=== PATIENT | female | born 1965 | race Caucasian/White ===

== ENCOUNTER → 2017-11-18 12:49 | Outpatient (CLI) | payer OTHER, SELFPAY ==
--- NOTE | 2017-11-18 12:57 | BI_ITS ---
MAMMOGRAPHY - BILATERAL SCREENING REASON FOR EXAM: Female, 52 years old. Routine annual screening examination. PERTINENT HISTORY: Grandmother with breast cancer. TECHNIQUE: Digital bilateral breast desmond (3D mammographic acquisition) in the CC and MLO projections. 2-D mediolateral oblique (MLO) and craniocaudad (CC) views of both breasts were obtained. CAD: Full Field Digital Mammography with Computer Added Detection was performed. COMPARISON: Comparison is made with prior study dated August 07, 2016 and December 18, 2011. FINDINGS: Breast Composition: The breasts are heterogeneously dense, which may obscure small masses. There are no dominant masses or suspicious calcifications. No other significant abnormalities are identified. There has been no significant change since the prior study. BI/SCREENING MAMM (CAD), BILAT IMPRESSION: Stable bilateral screening mammogram. Yearly follow-up mammogram recommended. (A) ASSESSMENT CATEGORY: BIRADS Category 1: Negative. A letter regarding these results will be sent to the patient by the facility within 30 days. Approximately 10% of breast cancers are not detected by mammography. A normal mammogram should not delay biopsy of a clinically suspicious abnormality. [id number] Electronically Signed: Fernando Porras MD at 13:32 EDT Tel [phone], Service support ,
== END ==
PROVIDERS: Family Provider Student in an Organized Health Care Education/Training Program; PCP Student in an Organized Health Care Education/Training Program
DX: Z12.31 Encounter for screening mammogram for malignant neoplasm of breast (principal)
CPT/HCPCS: 77063; 77067

== ENCOUNTER 2022-07-25 14:03 | Emergency (ER) | payer OTHER, SELFPAY ==
[2022-07-25 14:05] VITALS: BP 185/95; PULSE 59; RESP 18; TEMP 36.4; O2SAT 100; BMI 32.1
--- NOTE | 2022-07-25 14:42 | EX.ED.DYSGE1 ---
HPI History of Present Illness Chief Complaint: Hypertension Informant: patient Onset/Context/Timing Onset: Days (4) Context: Gradual Onset Timing: Continuous Quality: Pressure Location: Sinuses Worsened by: Nothing Relieved by: Nothing Narrative Narrative: Presents with elevated blood pressure that was noticed today when she went to the urgent care. Patient states her blood pressure there was 218/106. Patient states she called her primary care physician's office and was told to come to the emergency department because of the elevated blood pressure. Patient states that she has had a sinus infection over the past 4 days. Patient states it is gradually getting worse. Patient states it feels like a pressure over her sinuses. Patient states that 4 days ago she started having a headache that lasted approximately 2 hours. Patient states this was worse than her normal sinus pressure headaches. Patient states it lasted approximately 2 hours and then resolved. Patient states it is mainly over the occipital area. Patient denies any visual changes. Patient states that she woke up 3 days ago with scratchy throat and postnasal drainage. Patient states this is typical for the onset of her sinus infections. Patient does admit to some tingling in her arms bilaterally. Patient denies any weakness. [facility] Medical History (Updated 07/25/22 @ 17:[address] Stevo Martinez DO) Hypothyroid Home Medications amlodipine 5 mg tablet 5 mg PO DAILY #7 tabs 07/25/22 [Rx Last Taken Unknown] Allergy/AdvReac Type Severity Reaction Status Date / Time Sulfa (Sulfonamide Allergy Itching Verified 07/25/22 14:04 Antibiotics) erythromycin base AdvReac Vomiting Verified 07/25/22 14:04 Surgical History (Updated 07/25/22 @ 14:[address] Stevo Martinez DO) Hx of colonoscopy with polypectomy Social History Smoking Status: Never smoker ROS ROS ED Constitutional Constitutional ED: Denies chills or fever(s) Eyes Eyes: Denies blurry vision or change in vision ENT ENT ED: Reports rhinorrhea and sore throat Cardiovascular Cardiovascular: Denies chest pain or palpitations Respiratory/Chest Respiratory/Chest: Denies cough or dyspnea Gastrointestinal Gastrointestinal: Reports nausea; Denies vomiting Genitourinary Genitourinary ED: Denies dysuria or hematuria Musculoskeletal Musculoskeletal: Reports neck pain; Denies back pain Integumentary Denies abscess or rash Neurologic Neurologic: Reports headache(s) and paresthesias RUE and LUE; Denies weakness Allergic/Immunologic Allergic/Immunologic ED: Denies mouth swelling or urticaria EXAM Physical Exam Const Vital Signs: 07/25/22 14:05 07/25/22 14:14 Temperature 97.6 F L Temperature Source Temporal Pulse Rate 59 L Respiratory Rate 18 Respiratory Effort Normal Non-Labored Respiratory Pattern Normal Blood Pressure 185/95 H Blood Pressure Mean 125 Pulse Ox 100 Oxygen Delivery Method Room Air Positive well nourished and well developed General Appearance ED: well developed HEENT Reports moist mucous membranes Neck supple and no JVD Resp normal respiratory effort and clear to auscultation bilaterally Cardio regular rate, regular rhythm and no murmurs GI normal to inspection, nondistended, normoactive bowel sounds and non-tender Palpation: soft Extremity normal to inspection General Extremety ED: Negative for edema or tenderness General Extremity: Negative for edema Neuro oriented x3, CN's II-XII intact bilaterally and no sensory deficits noted Sensorium / Orientation: alert Motor Exam: strength 5/5 throughout Psych mental status grossly normal Skin no rashes or lesions noted MDM MDM MDM Narrative Medical decision making narrative: Differential diagnosis includes hypertensive urgency, sinusitis, intracranial bleeding, stroke, cardiac ischemia, cardiac dysrhythmia, viral upper respiratory infection, COVID-19 infection, influenza infection, bronchitis, and pneumonia. EKG will be obtained to assess for cardiac dysrhythmia and cardiac ischemia. Chest x-ray will be obtained to assess for pneumonia and congestive heart failure. CBC will be obtained to assess for leukocytosis and anemia. Comprehensive metabolic profile will be obtained to assess for electrolyte abnormality, renal function, and hepatic function. High-sensitivity troponin will be obtained to assess for cardiac ischemia. CT scan of the brain will be obtained to assess for intracranial bleeding. Lab Data Attestation: I reviewed the patient's lab results. Lab results narrative: CBC was reviewed and was within normal limits. Comprehensive metabolic profile was reviewed and was essentially within normal limits. High-sensitivity troponin was reviewed and was normal. TSH was reviewed and was normal. COVID-19 rapid antigen was reviewed and was negative. Influenza A and influenza B antigens were reviewed and were negative. Labs: Laboratory Results - last 24 hr 07/25/22 07/25/22 15:15 15:15 WBC 4.3 L RBC 4.62 Hgb 14.4 Hct 41.4 MCV 89.6 MCH 31.2 MCHC 34.8 RDW Std Deviation 38.9 RDW Coeff of Ryan 11.9 Plt Count 255 MPV 9.2 Immature Gran % (Auto) 0.200 Neut % (Auto) 56.7 Lymph % (Auto) 34.3 [place] % (Auto) 6.0 Eos % (Auto) 2.1 Baso % (Auto) 0.7 Absolute Neuts (auto) 2.5 Absolute Lymphs (auto) 1.48 Nucleated RBC % 0 Sodium 144 Potassium 3.6 Chloride 109 H Carbon Dioxide 29.0 Anion Gap 6 BUN 12 Creatinine 0.78 Estim Creat Clear Calc 74.49 Est GFR (MDRD) Af Amer 98 Est GFR (MDRD) Non-Af 81 BUN/Creatinine Ratio 15.3 Glucose 90 Calcium 10.6 H Total Bilirubin 0.50 AST 38 H ALT 60 H Alkaline Phosphatase 96 Troponin I High Sens 4 Total Protein 7.7 Albumin 3.9 Globulin 3.8 Albumin/Globulin Ratio 1.0 TSH 1.33 Radiography Diagnostic Testing: Clinical Impression(s) from Imaging Studies Brain CT 07/25/22 14:49 IMPRESSION: Normal unenhanced CT scan of the brain. Electronically Signed: Jose Gómez MD at 16:56 EST , CT scan of the brain was obtained. There is no acute intracranial abnormality. This was interpreted by the radiologist and was also independently reviewed by myself. EKG Initial EKG: Attestation: I personally reviewed and interpreted this EKG as follows: Interpretation: Sinus Rhythm (70) and No Acute Injury Pattern Comments: EKG was obtained. On my independent interpretation, it showed a normal sinus rhythm with a rate of 70. NV interval, QRS interval, and QTc intervals were all normal. Amoret was normal. There are no acute ST or T wave changes. Prior EKG tracings: not available for review Prior: No Prior Treatment and Re-Evaluation Narrative: Patient was given a dose of hydralazine here since her heart rate is 59 and I do not want to administer beta-blockers with the bradycardia. Patient is feeling better on reevaluation. Patient's repeat blood pressure was improved to 166/100. Patient will be given a prescription for amlodipine. Patient was instructed to follow-up with her primary care physician in 3 to 5 days for reevaluation. Patient was instructed to monitor her blood pressure at home and to take her blood pressures with her to her primary care physician. Patient understands and is agreeable with the plan. All questions were answered. Discharge Plan Triage Chief Complaint: Hypertension ED Provider: Stevo Martinez Dx/Rx/DC Orders Clinical Impression: Hypertension, Headache Instructions: ED Hypertension New Begin Treatment Prescriptions: New amlodipine 5 mg tablet 5 mg PO DAILY Qty: 7 0RF Primary Care Provider: Linwood Wilson Referrals: Linwood Wilson DO [Primary Care Provider] - 3-5 Days Disposition Disposition: Home, Self Care
--- NOTE | 2022-07-25 14:49 | CT_ITS ---
STUDY: CT BRAIN WITHOUT CONTRAST REASON FOR EXAM: Female, 57 years old. Headache RADIATION DOSAGE (If Supplied By Facility): CTDIvol = ( 44.99 ) mGy, DLP = ( 812.98 ) mGycm TECHNIQUE: Transaxial CT imaging of the brain was performed without administration of intravenous contrast material. Individualized dose optimization techniques were used for this CT. COMPARISON: No relevant priors. FINDINGS: Normal soft tissue structures. Normal calvarium. Normal size ventricles and extra-axial spaces for the patient''s age. Normal white matter tracts of the cerebral hemispheres. Normal basal ganglia and thalami. Normal brainstem. Normal cerebellum. There is no intracranial hemorrhage. There are no findings of an acute ischemic infarction. Normal visualized paranasal sinuses. CT/Brain/Head without Contrast IMPRESSION: Normal unenhanced CT scan of the brain. Electronically Signed: Jose Gómez MD at 16:56 EST ,
--- NOTE | 2022-07-25 14:50 | EKG12_ITS ---
Test Reason : HYPERTENSION Blood Pressure : / mmHG Vent. Rate : 070 BPM Atrial Rate : 070 BPM P-R Int : 178 ms QRS Dur : 072 ms QT Int : 376 ms P-R-T Axes : 058 039 011 degrees QTc Int : 406 ms Sinus rhythm with sinus arrhythmia Septal infarct , age undetermined , cannot be excluded Abnormal ECG Confirmed by NORBERT LIVINGSTON, HALEIGH ([id number]), features editor XU GRACIA ([id number]) on 07/29/2022 8:54:56 AM Referred By: JOSE DE JESUS Confirmed By:HALEIGH TOUSSAINT MD
[2022-07-25] MEDS: hydrALAZINE 20 MG/ML Vial 5 MG IV (15:12)
[2022-07-25 15:51] LABS: Absolute Lymphocyte Count 1.48 X10^3/uL (0.83-4.51); Absolute Neutrophil Count 2.5 X10^3/uL (2.0-7.7); Basophil# 0.03 X10^3/uL; Basophil% 0.7 % (0-1); Eosinophil# 0.09 X10^3/uL; Eosinophils% 2.1 % (0-5); Hematocrit 41.4 % (37-47); Hemoglobin 14.4 g/dL (12.0-15.0); Lymphocyte # 1.48 X10^3/ul (0.83-4.51); Lymphocyte % 34.3 % (19-41); Mean Corp Hgb Conc 34.8 g/dL (32-36); Mean Corpuscular Hgb 31.2 pg (27.0-32.0); Mean Corpuscular Volume 89.6 fL (81-99); Mean Platelet Vol. 9.2 fl (6.2-12.0); Monocyte# 0.26 X10^3/uL; NRBC Flagged by Analyzer 0 % (0-5); Neutrophil # 2.45 X10^3/uL (2.7-7.7); Neutrophil % 56.7 % (47-70); Platelet Count 255 K/mm3 (150-450); RBC Distribution Width CV 11.9 % (11.6-14.6); RBC Distribution Width SD 38.9 fl (35.1-43.9); Red Blood Count 4.62 M/mm3 (4.2-5.4); White Blood Count 4.3 K/mm3 (4.4-11.0)
[2022-07-25 16:04] LABS: AST(SGOT) 38 U/L (15-37); Alanine Aminotransfer ALT/SGPT 60 U/L (13-56); Albumin, Serum 3.9 g/dL (3.2-5.0); Alkaline Phosphatase 96 U/L (45-117); Anion Gap 6 (5-15); BUN 12 mg/dL (7-18); BUN/Creat Ratio 15.3 RATIO (10-20); Calcium,Total 10.6 mg/dL (8.5-10.1); Chloride 109 mmol/L (98-107); Creatinine, Serum 0.78 mg/dL (0.55-1.02); EST Glomerular Filtration Rate 81 mL/min (>60); Est Glom Filt Rate - Afr Amer 98 mL/min (>60); Estimated Creatinine Clearance 74.49 ml/min; Globulin 3.8 g/dL (2.2-4.2); Glucose 90 mg/dL (74-106); Potassium 3.6 mmol/L (3.5-5.1); Protein, Total 7.7 g/dL (6.4-8.2); Sodium Level 144 mmol/L (136-145); Thyroid Stim Hormone (TSH) 1.33 uIU/mL (0.358-3.74); Troponin-I HS 4 pg/mL (3.0-54.0)
[2022-07-25 17:49] VITALS: BP 166/102; PULSE 78; RESP 19
[2022-07-25 18:00] VITALS: BP 169/90
== END 2022-07-25 18:12 | disposition home or self-care (01) ==
PROVIDERS: Emergency Provider Emergency Medicine; PCP Student in an Organized Health Care Education/Training Program; Visit Provider Emergency Medicine
DX: I10 Essential (primary) hypertension (principal)
CPT/HCPCS: 70450; 80053; 84443; 84484; 85025; 87428; 93005; 96374; 99283; A4216

== ENCOUNTER 2022-07-31 20:13 | Emergency (ER) | payer OTHER, SELFPAY ==
[2022-07-31 20:14] VITALS: BP 195/85; PULSE 76; RESP 16; TEMP 36.6; O2SAT 100; BMI 32.1
[2022-07-31 21:05] LABS: Absolute Lymphocyte Count 2.06 X10^3/uL (0.83-4.51); Absolute Neutrophil Count 3.3 X10^3/uL (2.0-7.7); Basophil# 0.03 X10^3/uL; Basophil% 0.5 % (0-1); Eosinophils% 1.7 % (0-5); Hematocrit 42.6 % (37-47); Hemoglobin 14.8 g/dL (12.0-15.0); Lymphocyte # 2.06 X10^3/ul (0.83-4.51); Lymphocyte % 35.2 % (19-41); Mean Corp Hgb Conc 34.7 g/dL (32-36); Mean Corpuscular Hgb 30.8 pg (27.0-32.0); Mean Corpuscular Volume 88.8 fL (81-99); Mean Platelet Vol. 9.1 fl (6.2-12.0); Monocyte# 0.32 X10^3/uL; Monocyte% 5.5 % (0-10); NRBC Flagged by Analyzer 0 % (0-5); Neutrophil # 3.33 X10^3/uL (2.7-7.7); Neutrophil % 56.9 % (47-70); Platelet Count 272 K/mm3 (150-450); RBC Distribution Width CV 11.9 % (11.6-14.6); RBC Distribution Width SD 38.6 fl (35.1-43.9); White Blood Count 5.9 K/mm3 (4.4-11.0)
[2022-07-31 21:43] LABS: Anion Gap 6 (5-15); BUN 16 mg/dL (7-18); BUN/Creat Ratio 19.4 RATIO (10-20); Calcium,Total 9.8 mg/dL (8.5-10.1); Chloride 108 mmol/L (98-107); Creatinine, Serum 0.82 mg/dL (0.55-1.02); EST Glomerular Filtration Rate 76 mL/min (>60); Est Glom Filt Rate - Afr Amer 92 mL/min (>60); Estimated Creatinine Clearance 70.86 ml/min; Glucose 121 mg/dL (74-106); Potassium 3.9 mmol/L (3.5-5.1); Sodium Level 141 mmol/L (136-145)
--- NOTE | 2022-07-31 22:01 | EKG12_ITS ---
Test Reason : HTN Blood Pressure : / mmHG Vent. Rate : 071 BPM Atrial Rate : 071 BPM P-R Int : 170 ms QRS Dur : 084 ms QT Int : 426 ms P-R-T Axes : 060 024 049 degrees QTc Int : 462 ms Normal sinus rhythm Normal ECG Confirmed by NORBERT LIVINGSTON, HALEIGH ([id number]), graphic editor XU GRACIA ([id number]) on 08/04/2022 11:19:58 AM Referred By: Confirmed By:HALEIGH TOUSSAINT MD
[2022-07-31 22:33] LABS: Troponin-I HS 4 pg/mL (3.0-54.0)
[2022-07-31 23:14] VITALS: BP 168/90; PULSE 66; RESP 14; O2SAT 99
[2022-07-31] MEDS: cloNIDine HCl 0.1 MG Tablet PO (23:14)
[2022-07-31] MEDS: hydrALAZINE 20 MG/ML Vial 10 MG IV (23:15)
[2022-08-01 00:08] VITALS: BP 148/74; PULSE 74
--- NOTE | 2022-08-01 00:24 | EDS_ITS ---
HPI History of Present Illness Chief Complaint: Hypertension Narrative Narrative: Patient is a 57-year-old female with no reported significant past medical history. She was seen about 1 week ago secondary to hypertension and headache and had a work-up that included basic labs and head CT with no clinically significant finding. She states that she cannot get into a family doctor to discuss continuing blood pressure medication. She reports she has been checking her pressures at home since that visit and they have been persistently elevated. She denies any change in vision or headache associated with this. She denies any chest pain or shortness of breath. She also denies any excessive stimulant use or illicit drug use as the cause of the hypertension. However as she does not have medication to treat it any further and has been persistently elevated she is concerned that this could cause a medical issue and therefore she comes in for repeat evaluation [facility] Medical History (Updated 08/01/22 @ 00:[address] Scott Power DO) Hypothyroid Home Medications amlodipine 5 mg tablet 5 mg PO DAILY #7 tabs 07/25/22 [Rx Last Taken Unknown] lisinopril 20 mg tablet 20 mg PO DAILY 30 days #30 tabs 08/01/22 [Rx Last Taken Unknown] metoprolol succinate 25 mg tablet,extended release 24 hr 25 mg PO DAILY 30 days #30 tabs 08/01/22 [Rx Last Taken Unknown] Allergy/AdvReac Type Severity Reaction Status Date / Time Sulfa (Sulfonamide Allergy Itching Verified 07/31/22 20:17 Antibiotics) erythromycin base AdvReac Vomiting Verified 07/31/22 20:17 Surgical History (Updated 07/25/22 @ 14:[address] Stevo Martinez DO) Hx of colonoscopy with polypectomy Social History Smoking Status: Never smoker ROS ROS ED Constitutional Constitutional ED: Denies chills or fever(s) Eyes Eyes: Denies change in vision ENT ENT ED: Denies sore throat Cardiovascular Cardiovascular: Denies chest pain Respiratory/Chest Respiratory/Chest: Denies cough or dyspnea Gastrointestinal Gastrointestinal: Denies abdominal pain, diarrhea, nausea or vomiting Genitourinary Genitourinary ED: Denies dysuria Musculoskeletal Musculoskeletal: Denies myalgias Integumentary Denies rash Neurologic Neurologic: Denies headache(s) Psychiatric Psychiatric: Denies anxiety Hematologic/Lymphatic Hematologic/Lymphatic: Denies easy bleeding or easy bruising EXAM Physical Exam Const Vital Signs: 07/31/22 20:14 07/31/22 22:34 07/31/22 23:14 Temperature 97.9 F Temperature Source Temporal Pulse Rate 76 66 Respiratory Rate 16 14 Respiratory Effort Normal Non-Labored Respiratory Pattern Normal Blood Pressure 195/85 H 168/90 H Blood Pressure Mean 121 116 Pulse Ox 100 99 Oxygen Delivery Method Room Air Room Air 08/01/22 00:08 08/01/22 00:41 Temperature Temperature Source Pulse Rate 74 81 Respiratory Rate 26 H Respiratory Effort Respiratory Pattern Blood Pressure 148/74 H 151/78 H Blood Pressure Mean 98 Pulse Ox 97 Oxygen Delivery Method Positive well nourished and well developed General Appearance ED: well developed Eyes PERRL and EOMs intact bilaterally Neck supple Neck Narrative: No nuchal rigidity or meningeal signs noted Resp normal respiratory effort and clear to auscultation bilaterally Cardio regular rate and regular rhythm Rate: other Other Details: Radial pulses are plus 2 out of 4 bilaterally are equal and Carotid pulses equal and symmetric as well GI normal to inspection, nondistended, normoactive bowel sounds, non-tender, non- distended and no masses GI Narrative: No voluntary guarding or rigidity. No pulsatile mass or fluid wave Auscultation: normoactive bowel sounds Palpation: soft Extremity normal to inspection Extremity Narrative: No asymmetric edema no pitting edema negative Homans' sign bilaterally Neuro oriented x3, CN's II-XII intact bilaterally and no sensory deficits noted Neuro Narrative: Cranial nerves II through XII are grossly intact there are no focal neurologic deficit. No pronator drift no dysmetria no truncal ataxia. Sensorium / Orientation: alert Psych mental status grossly normal Skin no rashes or lesions noted MDM MDM MDM Narrative Medical decision making narrative: Patient presented to the ER hypertensive but otherwise with stable vital. She denied any illicit drug use or excessive stimulant use which could have caused her hypertension. She also denies any chest pain or shortness of breath and does not have leg swelling on exam going against acute kidney injury congestive heart failure or CAD as a cause of her symptoms. Patient blood work was obtained to rule out signs of endorgan damage and she has no signs of acute kidney injury or severe electrolyte derangement or cardiac event. I do not feel the need for repeat head CT as she had one 1 week ago and at this time has a normal neurologic exam with no report of headache. Patient was given hydralazine and clonidine and her blood pressure reduced by approximately 25% to 145/80. On reevaluation she remained neurologically intact and continued to have no signs of endorgan damage. Therefore patient can be started on oral medication to control her blood pressure but as she has no signs of endorgan damage is otherwise safe for discharge History & Record Review Discussion w/independent historian: Patient and Significant other Lab Data Attestation: I reviewed the patient's lab results. Labs: Laboratory Results - last 24 hr 07/31/22 07/31/22 07/31/22 21:00 21:00 21:00 WBC 5.9 RBC 4.80 Hgb 14.8 Hct 42.6 MCV 88.8 MCH 30.8 MCHC 34.7 RDW Std Deviation 38.6 RDW Coeff of Ryan 11.9 Plt Count 272 MPV 9.1 Immature Gran % (Auto) 0.200 Neut % (Auto) 56.9 Lymph % (Auto) 35.2 [place] % (Auto) 5.5 Eos % (Auto) 1.7 Baso % (Auto) 0.5 Absolute Neuts (auto) 3.3 Absolute Lymphs (auto) 2.06 Nucleated RBC % 0 Sodium 141 Potassium 3.9 Chloride 108 H Carbon Dioxide 27.0 Anion Gap 6 BUN 16 Creatinine 0.82 Estim Creat Clear Calc 70.86 Est GFR (MDRD) Af Amer 92 Est GFR (MDRD) Non-Af 76 BUN/Creatinine Ratio 19.4 Glucose 121 H Calcium 9.8 Troponin I High Sens 4 Discharge Plan Triage Chief Complaint: Hypertension ED Provider: Scott Power Dx/Rx/DC Orders Clinical Impression: Accelerated hypertension Instructions: ED Hypertension New Begin Treatment Prescriptions: New lisinopril 20 mg tablet 20 mg PO DAILY 30 Days Qty: 30 1RF metoprolol succinate 25 mg tablet extended release 24 hr 25 mg PO DAILY 30 Days Qty: 30 1RF No Action amlodipine 5 mg tablet 5 mg PO DAILY Qty: 7 0RF Primary Care Provider: Linwood Wilson Referrals: Linwood Wilsno, [Primary Care Provider] - Activity Restrictions/Additional Instructions: Please begin taking the blood pressure medication that was prescribed today. You can start by taking each in the morning but this is causing you to feel lightheaded dizzy or excessive fatigue please begin taking the lisinopril in the morning and the metoprolol in the evening. Follow-up with your family doctor to discuss further treatment options and return to the ER should you have any further concerns Disposition Disposition: Home, Self Care Discharge Date/Time: 08/01/22 00:41
[2022-08-01 00:41] VITALS: BP 151/78; PULSE 81; RESP 26; O2SAT 97
== END 2022-08-01 00:41 | disposition home or self-care (01) ==
PROVIDERS: Emergency Provider Emergency Medicine; PCP Student in an Organized Health Care Education/Training Program; Visit Provider Emergency Medicine
DX: I10 Essential (primary) hypertension (principal)
CPT/HCPCS: 80048; 84484; 85025; 93005; 96374; 99285; A4216

== ENCOUNTER → 2022-08-27 | Outpatient (CLI) | payer OTHER, SELFPAY ==
[2022-08-27 18:55] LABS: Cholesterol 220 mg/dL (200); High Density Lipoprotein 61 mg/dL; Triglycerides 103 mg/dL; Very Low Density Lipoprotein 21 mg/dL (5-40)
== END | disposition home or self-care (01) ==
LOC: MFPLAB 15:22
PROVIDERS: PCP Family Medicine; Referring Provider Family Medicine; Visit Provider Family Medicine
DX: Z01.810 Encounter for preprocedural cardiovascular examination (principal)
CPT/HCPCS: 36415; 80061

== ENCOUNTER → 2023-01-09 | Outpatient (CLI) | payer OTHER, SELFPAY ==
--- NOTE | 2023-01-09 09:31 | BI_ITS ---
MAMMOGRAPHY - BILATERAL SCREENING REASON FOR EXAM: Female, 57 years old. Routine annual screening examination. PERTINENT HISTORY: Grandmother with breast cancer. TECHNIQUE: Digital bilateral breast amada (3D mammographic acquisition) in the CC and MLO projections. 2-D mediolateral oblique (MLO) and craniocaudad (CC) views of both breasts were obtained. CAD: Full Field Digital Mammography with Computer Added Detection was performed. COMPARISON: Comparison is made with prior study dated November 18, 2017 and August 07, 2016. FINDINGS: Breast Composition: The breasts are heterogeneously dense, which may obscure small masses. There are no dominant masses or suspicious calcifications. No other significant abnormalities are identified. There has been no significant change since the prior study. BI/SCRN MAMM (CAD)W/AMADA BILAT IMPRESSION: Stable bilateral screening mammogram. Yearly follow-up mammogram recommended. (A) ASSESSMENT CATEGORY: BIRADS Category 1: Negative. A letter regarding these results will be sent to the patient by the facility within 30 days. Approximately 10% of breast cancers are not detected by mammography. A normal mammogram should not delay biopsy of a clinically suspicious abnormality. [id number] Electronically Signed: Fernando Porras MD at 10:30 EDT ,
== END | disposition home or self-care (01) ==
LOC: OPBI 09:30
PROVIDERS: PCP Family Medicine; Referring Provider Family Medicine; Visit Provider Family Medicine
DX: Z12.31 Encounter for screening mammogram for malignant neoplasm of breast (principal)
CPT/HCPCS: 77063; 77067

== ENCOUNTER 2023-06-12 09:23 | Day surgery (SDC) | payer OTHER, SELFPAY ==
--- NOTE | 2023-06-12 | COLBX_PTH ---
PATHOLOGY RESULTS PATIENT: JAMARI MCKENZIE LOC: EN U#:[id number] AGE/SX: 57/F ROOM: RE06/12/[address]: Dr. Jannette Serra MD : 1965 BED: DIS: 06/12/2023 SPEC #: [id number] RECD: 06/12/23 13:00 STATUS: DANYELL EFRA #: [id number] SHARON: 06/12/23 00:[address]: Jannette Serra DEPT: SURGICAL PATHOLOGY RECD BY: Kobi Sanchez ENTERED: 06/12/23 13:01 SP TYPE: COLON BX OTHR DR: Jennifer Frost DO Tissues: COLON BIOPSY Transverse colon Splenic capsule Descending colon Procedures: Surgery Specimen Level IV HEADER OPERATION: Colonoscopy with polypectomy and biopsy PRE-OP DIAGNOSIS: Serrated polyp of colon TISSUE SUBMITTED: A - Hepatic flexure polyp, B - Transverse colon polyp, C - Splenic flexure polyp at 90.0 cm, D - Descending colon polyp x2 MICROSCOPIC DIAGNOSIS A. Hepatic flexure polyp, polypectomy: Hyperplastic polyp. B. Transverse colon polyp, polypectomy: Fragments of hyperplastic polyp. C. Splenic flexure polyp at 90.0 cm, biopsy: Tubular adenoma. Hyperplastic polyp. D. Descending colon polyp x2, polypectomy: Fragments of hyperplastic polyp. SJ:michael 06/15/2023 MICROSCOPIC DESCRIPTION Slides are reviewed. GROSS DESCRIPTION A - Received in fixative is one container labeled with the patient's name and designated hepatic flexure polyp. The specimen consists of a macias-pink polyp measuring 1.0 x 0.6 x 0.3 cm. The specimen is totally submitted in one cassette. B - Received in fixative is one container labeled with the patient's name and designated transverse colon polyp. The specimen consists of multiple irregular fragments of light macias soft tissue that in aggregate measure 0.8 x 0.3 x 0.1 cm. The specimen is totally submitted in one cassette. C - Received in fixative is one container labeled with the patient's name and designated splenic flexure polyp. The specimen consists of two irregular fragments of light macias soft tissue that in aggregate measure 0.4 x 0.2 x 0.1 cm. The specimen is totally submitted in one cassette. D - Received in fixative is one container labeled with the patient's name and designated descending colon polyp x2. The specimen consists of multiple irregular fragments of light macias soft tissue that in aggregate measure 1.0 x 0.6 x 0.1 cm. The specimen is totally submitted in one cassette. / ABIMAEL:michael 06/12/23 TC:1 CPT: 03703 x4
--- OUTSIDE RECORDS SUMMARY | 2023-06-12 09:46 | XMS RPT_ITS | CCD ---
Author Name Unknown Address [address] [place] [address] Organization [facility] Care Team Providers Care Lion Trainer Name Role Phone Linwood Wilson DO Primary Care Provider Allergies Allergy Classification Reported Allergen(s) Allergy Type Date of Onset Reaction(s) Facility (2 sources) Erythromycin; Translations: [ERYTHROMYCIN] Drug Allergy 1 Vomiting [facility] Work Phone: (2 sources) Sulfonamides (Antibiotic); Translations: [SULFA (SULFONAMIDE ANTIBIOTICS)] Drug Intolerance 1 Itching [facility] Work Phone: Medications Current Medications Medication Drug Class(es) Dates Sig (Normalized) Sig (Original) doxycycline monohydrate 100 mg oral tablet (1 source) Tetracycline-cla ss Drug Start: 07-25-2022 End: 07-30-2022 take 1 tablet by mouth twice daily doxycycline monohydrate 100 mg tablet Indications: Rhinosinusitis Take 1 tablet by mouth twice daily for 5 days. 10 tablet 0 07/25/2022 07/30/2022 Active Completed/Discontinued Medications Medication Drug Class(es) Dates Sig (Normalized) Sig (Original) [id number] 200 actuat albuterol 0.09 mg/actuat metered dose inhaler (2 sources) beta2-Adrenergic Agonist Start: 05-23-2021 take 2 puff(s) by inhalation every six hours as needed albuterol HFA (PROAIR HFA) 90 mcg/actuation inhaler Inhale 2 Puffs as instructed every 6 hours as needed. 8 g 0 05/23/2021 Active Problems Active Problems Problem Classification Problem Date Documented Da te Episodic/Chronic Cardiac dysrhythmias (1 source) Multiple premature ventricular complexes; Translations: [Ventricular premature depolarization] Onset: 03-20-2014 03-20-2014 Chronic Essential hypertension (1 source) Hypertensive disorder; Translations: [Essential (primary) hypertension] Onset: 03-20-2014 03-20-2014 Chronic Other upper respiratory disease (1 source) Chronic rhinitis; Translations: [Unspecified sinusitis (chronic)] Chronic Other upper respiratory infections (1 source) Sore throat symptom; Translations: [Acute pharyngitis, unspecified] Episodic Past or Other Problems Problem Classification Problem Date Documented Da te Episodic/Chronic Malaise and fatigue (1 source) Fatigue; Translations: [Other fatigue] Onset: 03-03-2014 03-03-2014 Episodic Nonspecific chest pain (1 source) Chest discomfort; Translations: [Other chest pain] Onset: 03-03-2014 03-03-2014 Episodic Other lower respiratory disease (1 source) Dyspnea; Translations: [Shortness of breath] Onset: 03-03-2014 03-03-2014 Episodic Residual codes; unclassified (1 source) FH: premature coronary heart disease; Translations: [Family history of ischemic heart disease and other diseases of the circulatory system] Onset: 03-03-2014 03-03-2014 Episodic Results Test Name Value Interpretation Reference Range Facil ity Vital Signs Date Time Vital Sign Value Performing Clinician Abraham vargas 07-25-2022 12:35-0500 Body temperature 97.3 [degF] Giselle Go APRN.CNP Work Phone: [facility] 07-25-2022 12:35-0500 Body weight 89.99 kg Giselle Go APRN.CNP Work Phone: [facility] 07-25-2022 12:35-0500 Diastolic blood pressure 106 mm[Hg] Giselle Go APRN.CNP Work Phone: [facility] 07-25-2022 12:35-0500 Heart rate 70 /min Giselle Go APRN.CNP Work Phone: [facility] 07-25-2022 12:35-0500 Respiratory rate 18 /min Giselle Go APRN.CNP Work Phone: [facility] 07-25-2022 12:35-0500 SaO2% (BldA) [Mass fraction] 98 % Giselle Go APRN.CNP Work Phone: [facility] 07-25-2022 12:35-0500 Systolic blood pressure 218 mm[Hg] Giselle Go APRN.CNP Work Phone: [facility] Encounters Encounter Date Encounter Type Care Provider Facility Start: 07-25-2022 End: 07-25-2022 ambulatory LINWOOD WILSON Facility:[facility] Start: 07-25-2022 End: 07-25-2022 Patient encounter procedure Giselle Go APRN.CNP Work Phone: [facility] Procedures Date Procedure Procedure Detail Performing Clinician Start: 07-25-2022 STREP A MOLECULAR (POC) Giselle Go APRN.CNP Work Phone: Start: 12-06-2018 Colonoscopy Giselle Go APRN.CNP Work Phone: Start: 11-18-2017 Mammography Giselle Go APRN.CNP Work Phone: Plan of Treatment Date Care Activity Detail Author Start: 12-06-2028 Colonoscopy COLONOSCOPY [facility] Start: 12-06-2028 COLORECTAL CANCER SCREENING COLORECTAL CANCER SCREENING [facility] Start: 06-01-2022 DEPRESSION ASSESSMENT DEPRESSION ASS ESSMENT [facility] Start: 01-30-2022 Influenza vaccination INFLUENZA (#1) [facility] Start: 10-14-2020 Urine microalbumin profile DTA P,TDAP,TD (2 - Td or Tdap) [facility] Start: 05-23-2020 PAP TESTING PAP TESTING [facility] Start: 03-03-2019 LIPID SCREEN LIPID SCREEN [facility] Start: 11-18-2018 Mammography MAMMOGRAM [facility] Start: 09-11-2018 DIABETES SCREEN DIABETES SCREEN [facility] Start: 2015 SHINGRIX VACCINE (1 of 2) SHINGRIX V ACCINE (1 of 2) [facility] Start: 2010 COLOGUARD (FIT-DNA) COLOGUARD (FIT-D NA) [facility] Start: [address] COLONOGRAPHY [facility] Start: 2010 FECAL OCCULT BLOOD FECAL OCCULT BLOO D [facility] Start: 2010 SIGMOIDOSCOPY SIGMOIDOSCOPY [facility] Start: 1995 HPV TESTING HPV TESTING [facility] Start: 1983 ANNUAL PCP TEAM CABINET INSTALLER RACHEL DISEASE VISIT ANNUAL PCP TEAM CHRONIC DISEASE VISIT [facility] Start: 1983 BP CONTROLLED (<130/80) BP CONTROLLE D (<130/80) [facility] Start: 1983 HEPATITIS C SCREENING HEPATITIS C SC REENING [facility] Start: 1983 HIV SCREENING HIV SCREENING [facility] Start: 01-12-1966 COVID-19 VACCINE (#1) COVID-19 VACCI NE (#1) [facility] Start: 1965 HEPATITIS B (1 of 3 - 3-dose series) HEPATITIS B (1 of 3 - 3-dose series) [facility] Immunizations Immunization Date Immunization Notes Care Provider Nic beard 10-14-2010 tetanus toxoid, redu julian diphtheria toxoid, and acellular pertussis vaccine, adsorbed Giselle Go APRN.FILLER MIXER Work Phone: [facility] Work Phone: Payers Date Payer Category Payer Private Health Insurance [employer] A [employer] MANAGED CHOICE POS [id number] 2018-Present [phone] [address] [place] [address] POS [id number] 2018 Private Health Insurance [id number] Social History Date Type Detail Facility Start: 07-09-2015 Tobacco smoking stat us NHIS Never smoked tobacco [facility] Start: 07-09-2015 Tobacco use and exposure Smoke less tobacco non-user [facility] Start: 07-25-2022 Alcohol intake Current non-dr radio sales account executive of alcohol (finding) [facility] Start: 1965 Sex Assigned At Not on file [facility] Progress note 07-25-2022 Note Date & Type Note Facility 07-25-2022 Note HNO ID: [id number] Author: Giselle Go APRN.CNP Service: ? Author Type: Nurse Practitioner Type: Progress Notes Filed: 07/25/2022 1:04 PM Note Text: CC: Patient presents with: Head Congestion: Sinus drainage x3 days Head congestion longer than a week last few days much worse. HPI: Jamari Murray is a 57 year old female who presents to the office with complaint of head congestion, cough, nonproductive, and sinus symptoms for a few days. Symptoms are worsening Associated symptoms includes nasal congestion and facial pain/pressure. Denies fever, nausea, vomiting , and diarrhea. Treatments tried include nothing so far. with no relief of symptoms. Sick contacts: unknown. History of asthma, frequent episodes of bronchitis, chronic bronchitis, bronchiectasis or COPD: No Smoker: No Seasonal/environmental allergies: No The ROS is otherwise negative. The patient's pmh, medications, allergies, and past visits are reviewed. PHYSICAL EXAM: BP (!) 218/106 Pulse 70 Temp 36.3 ?C (97.3 ?F) Resp 18 Wt 90 kg (198 lb 6.4 oz) LMP 11/20/2015 SpO2 98% BMI 31.31 kg/m? General appearance: alert, cooperative, pleasant, in no acute distress Head: Normocephalic Eyes: EOM's intact, conjunctiva pink and moist, no icterus, sclera white, non-injected Ears: Right ear: External ear/canal- Normal, TM - clear with good landmarks. Left ear: External ear/canal- Normal, TM - clear with good landmarks Oropharynx:moderate erythema, without exudates present Heart: Negative. RRR without obvious murmur, gallop, or rubs. No ectopy. Lungs: clear to auscultation, without rales or wheeze, good air exchange PAST MEDICAL HISTORY Diagnosis Date Allergic rhinitis Asthma PFTs 03/14 Hypertension PAST SURGICAL HISTORY Procedure Laterality Date CHOLECYSTECTOMY 2005 Cholecystectomy COLONOSCOPY FLX DX W/COLLJ SPEC WHEN PFRMD 08/19/2018 Colonoscopy ALLERGIES Erythromycin and Sulfa (Sulfonamide Antibiotics) MEDICATIONS loratadine (CLARITIN) 10 mg tablet Take 1 tablet by mouth once daily. FOR ALLERGY SYMPTOMS albuterol HFA (PROAIR HFA) 90 mcg/actuation inhaler Inhale 2 Puffs as instructed every 6 hours as needed. peg 3350-Electrolytes (GOLYTELY) 236-22.74-6.74 -5.86 gram suspension Refer to printed patient instructions that will be mailed to you. (Patient not taking: Reported on 07/07/2020 ) thyroid,pork (NATURE-THROID ORAL) Take by mouth. albuterol HFA (PROAIR HFA) 90 mcg/actuation inhaler Inhale 2 Puffs as instructed every 4 hours as needed for Wheezing/Shortness of Breath. (Patient not taking: Reported on 10/18/2018 ) FAMILY HISTORY Problem Relation Age of Onset Diabetes Mother Heart Mother 48 [place], hx of 4 vessel CABG COPD Mother tobacco other (IBS) Mother Cancer Father melanoma Social History Tobacco Use Smoking status: Never Smokeless tobacco: Never Substance Use Topics Alcohol use: No Drug use: No ASSESSMENT/PLAN: 1. Sore throat - ICD9: 462, ICD10: J02.9 (primary diagnosis) - STREP A MOLECULAR (POC) - neg 2. Rhinosinusitis - ICD9: 473.9, ICD10: J31.0, J32.9 - DOXYCYCLINE MONOHYDRATE 100 MG TABLET Appt made with PCP for blood pressure follow up. Upon recheck blood pressure was 204/108 Prescription instructions reviewed with patient as applicable. Potential red flag symptoms discussed with the patient. Reviewed appropriate action plan to take if red flag symptoms occur. Patient agreeable to treatment plan. Giselle Go APRN.[facility] History of Present illness Narrative 07-25-2022 Giselle Go APRN.[facility] - 07/25/2022 12:47 PM EST Note Date & Type Note Facility 07-25-2022 History of Presen t illness Narrative CC: Patient presents with: Head Congestion: Sinus drainage x3 days Head congestion longer than a week last few days much worse. HPI: Jamari Murray is a 57 year old female who presents to the office with complaint of head congestion, cough, nonproductive, and sinus symptoms for a few days. Symptoms are worsening Associated symptoms includes nasal congestion and facial pain/pressure. Denies fever, nausea, vomiting , and diarrhea. Treatments tried include nothing so far. with no relief of symptoms. Sick contacts: unknown. History of asthma, frequent episodes of bronchitis, chronic bronchitis, bronchiectasis or COPD: No Smoker: No Seasonal/environmental allergies: No The ROS is otherwise negative. The patient's pmh, medications, allergies, and past visits are reviewed. PHYSICAL EXAM: BP (!) 218/106 Pulse 70 Temp 36.3 C (97.3 F) Resp 18 Wt 90 kg (198 lb 6.4 oz) LMP 11/20/2015 SpO2 98% BMI 31.31 kg/m General appearance: alert, cooperative, pleasant, in no acute distress Head: Normocephalic Eyes: EOM's intact, conjunctiva pink and moist, no icterus, sclera white, non-injected Ears: Right ear: External ear/canal- Normal, TM - clear with good landmarks. Left ear: External ear/canal- Normal, TM - clear with good landmarks Oropharynx:moderate erythema, without exudates present Heart: Negative. RRR without obvious murmur, gallop, or rubs. No ectopy. Lungs: clear to auscultation, without rales or wheeze, good air exchange PAST MEDICAL HISTORY Diagnosis Date Allergic rhinitis Asthma PFTs 03/14 Hypertension PAST SURGICAL HISTORY Procedure Laterality Date CHOLECYSTECTOMY 2005 Cholecystectomy COLONOSCOPY FLX DX W/COLLJ SPEC WHEN PFRMD 08/19/2018 Colonoscopy ALLERGIES Erythromycin and Sulfa (Sulfonamide Antibiotics) MEDICATIONS loratadine (CLARITIN) 10 mg tablet Take 1 tablet by mouth once daily. FOR ALLERGY SYMPTOMS albuterol HFA (PROAIR HFA) 90 mcg/actuation inhaler Inhale 2 Puffs as instructed every 6 hours as needed. peg 3350-Electrolytes (GOLYTELY) 236-22.74-6.74 -5.86 gram suspension Refer to printed patient instructions that will be mailed to you. (Patient not taking: Reported on 07/07/2020 ) thyroid,pork (NATURE-THROID ORAL) Take by mouth. albuterol HFA (PROAIR HFA) 90 mcg/actuation inhaler Inhale 2 Puffs as instructed every 4 hours as needed for Wheezing/Shortness of Breath. (Patient not taking: Reported on 10/18/2018 ) FAMILY HISTORY Problem Relation Age of Onset Diabetes Mother Heart Mother 48 OR, hx of 4 vessel CABG COPD Mother tobacco other (IBS) Mother Cancer Father melanoma Social History Tobacco Use Smoking status: Never Smokeless tobacco: Never Substance Use Topics Alcohol use: No Drug use: No ASSESSMENT/PLAN: 1. Sore throat - ICD9: 462, ICD10: J02.9 (primary diagnosis) - STREP A MOLECULAR (POC) - neg 2. Rhinosinusitis - ICD9: 473.9, ICD10: J31.0, J32.9 - DOXYCYCLINE MONOHYDRATE 100 MG TABLET Appt made with PCP for blood pressure follow up. Upon recheck blood pressure was 204/108 Prescription instructions reviewed with patient as applicable. Potential red flag symptoms discussed with the patient. Reviewed appropriate action plan to take if red flag symptoms occur. Patient agreeable to treatment plan. Giselle Go APRN.MINESH documented in this encounter [facility] Evaluation note Note Date & Type Note Facility documented in this encounter [facility] Summary Purpose Family History No Family History Records Found Advance Directives No Advanced Directives Records Found Additional Source Comments Source Comments (unrecognize d section and content) In the event this informatio n is protected by the Federal Confidentiality of Alcohol and Drug Abuse Patient Records regulations: The Federal rules restrict any use of the information to criminally investigate or prosecute any alcohol or drug abuse patient.[facility] Reason for Visit (unrecogniz ed section and content) Care Teams (unrecognized sec tion and content) INFORMATION SOURCE (unrecogn ized section and content) FOR RECORDS PERTAINING TO PATIENTS WHO ARE OR HAVE BEEN ENROLLED IN A CHEMICAL DEPENDENCY/SUBSTANCEABUSE PROGRAM, SOME INFORMATION MAY BE OMITTED. This clinical summary was aggregated from multiple sources. Caution should be exercised in using it in the provision of clinical care. This summary normalizes information from multiple sources, and as a consequence, information in this document may materially change the coding, format and clinical context of patient data. In addition, data may be omitted in some cases. CLINICAL DECISIONS SHOULD BE BASED ON THE PRIMARY CLINICAL RECORDS. [employer] provides no warranty or guarantee of the accuracy or completeness of information in this document.
[2023-06-12 10:10] VITALS: BP 148/79; PULSE 74; RESP 18; TEMP 36.7; O2SAT 98; BMI 26.0
[2023-06-12] MEDS: Lactated Ringers 1,000 ML 15 ML IV (10:15)
--- NOTE | 2023-06-12 10:24 | HP.PCM_ITS ---
History and Physical Date of Admission: 06/12/23 Date of Service: 05/29/23 MR#: [id number] Acct: [id number] Name: JAMARI MCKENZIE Rep #: [id number] : 1965 Provider: Dr. Jannette Serra MD Age/Sex: 57/F Location: [facility] Status: Signed Intake Vital Signs 08/01/2319:14 05/29/2310:40 Height 5 ft 6 in Weight: 183 lb BP 140/91 H Blood Pressure Location Rt brachial Position Sitting Respiration 17 Pulse 67 Pulse Source Monitor Temp 97 F L Temp Source Temporal Pulse Oximetry (%) 99 Oxygen Delivery Method room air Intake Visit Reasons: COLONOSCOPY Chief Complaint: colonoscopy Is patient in pain?: No Allergies Sulfa (Sulfonamide Antibiotics) Allergy (Verified 05/29/23 10:40) Itchingerythromycin base Adverse Reaction (Verified 05/29/23 10:40) Vomiting Medications amlodipine 5 mg tablet 5 mg PO DAILY #7 tabs 07/25/22 [Rx Confirmed 05/29/23] lisinopril 20 mg tablet 20 mg PO DAILY 30 days #30 tabs 08/01/22 [Rx Confirmed 05/29/23] metoprolol succinate 25 mg tablet,extended release 24 hr 25 mg PO DAILY 30 days #30 tabs 08/01/22 [Rx Confirmed 05/29/23] PFSH Medical History (Updated 05/29/23 @ 12:[address] Jannette Serra MD) Heart murmur Hypertension Hypothyroid Thyroid disease Surgical History (Updated 07/25/22 @ 14:[address] Stevo Martinez DO) Hx of colonoscopy with polypectomy Social History Smoking Status: Never smoker HPI HPI HPI: 57-year-old female presents for colonoscopy. Patient last colonoscopy was in [address] Ayala and there is a larger serrated polyp that she was unable to c omplete removed the patient went to main campus also in 2019 and had that area removed pathology was a serrated polyp estimated about 3.5 cm per colonoscopy report. Patient states then COVID hit so she did not do her follow-up which was in 6 months for surveillance. Patient states she has been having balance about every other day occasionally has some constipation about every 2 weeks otherwise denies any chronic abdominal pain/nausea/vomiting/reflux. Denies any blood in her stool. No family history of colon cancer. ROS General General: Yes weight change and fatigue; No appetite, colon cancer or breast cancer HEENT HEENT: No difficulty swallowing, eye injury, eye surgery, swollen glands or hoarseness Endo Endocrine: Yes thyroid disease; No diabetes mellitus, thyroid cancer, Hair loss, heat intolerance or cold intolerance Skin Skin: No rash or changing moles Musc Musculoskeletal: No back problems, arthritis, rheumatoid arthritis, gout or joint pain Cardio Cardiovascular: No murmur, pacemaker, heart disease, atrial fibrillation, high blood pressure, heart attack, heart stent, palpitations, shortness of breat with exertion or chest pain Psych Psychiatric: No depression, anxiety or hearing voices Resp Respiratory: No shortness of breath, No sleep apnea, No cough, No COPD, No asthma, No emphysema and No wheezing Gastro Gastrointestinal: Yes abdominal pain, Yes nausea or vomiting, Yes diarrhea, Yes constipation, No blood in stool, No acid reflux, Yes hemorrhoids, No ulcers, No gallbladder problem and No black,tarry stools Sravan Hematologic: No blood thinners, No blood disorders, No bleeding, No anemia and No blood clots Neuro Neurologic: No numbness and No tingling Exam Const General: cooperative, healthy appearing, comfortable and no acute distress [facility] Head: normocephalic and atraumatic Neck Neck: supple Resp Effort & Inspection: normal respiratory effort Cardio Rate: regular rate GI Inspection: non-distended Palpation: soft and nontender Skin General: no rashes or lesions noted Neuro General: CN's II-XI intact bilaterally Extrem General: normal to inspection Psych Mental Status: mental status grossly normal Attitude: cooperative Assessment and Plan Assessment and Plan (1) Serrated polyp of colon: Status: Acute Comment: 3.5 cm sessile removed 2019 at [facility] by GI Plan Discussed with patient due to the size of the serrated polyp she would be at higher risk and would recommend getting colonoscopies every 5 years even if she had no polyps during this colonoscopy. I have discussed the above with the patient. I have offered the patient colonoscopy for evaluation. I have explained the risks/benefits of the procedure and described the procedure. I have discussed the risks with the patient, including but not limited to: infection, bleeding, perforation of the GI tract requiring emergency surgery, inability to complete the procedure, injury to any internal organs, complications of anesthesia, etc. - the patient understands and agrees to proceed. I have answered all the patient's questions to the patient's satisfaction and the patient has no further questions. The patient has been given instructions for the colon cleansing preparation. 1 day of clears, MiraLAX Dulcolax split prep. Jannette Serra M.D. Pager: [phone] [facility] [address] [place] [address], [address] [place] [address] Office: [phone] Coding Level of Care Code Off vis,new,level 3 Diagnoses Serrated polyp of colon K63.5 05/29/23 1208 <Electronically signed by Jannette Serra MD> Date Jannette Serra MD
[2023-06-12 12:00] VITALS: BP 148/79; BP 98/64; PULSE 59; RESP 16; TEMP 36; O2SAT 97
[2023-06-12 12:05] VITALS: BP 109/64; BP 148/79; PULSE 60; RESP 16; O2SAT 96
--- NOTE | 2023-06-12 12:05 | OP.COLON_ITS ---
Patient Name: Christy Murray Procedure Date: 06/12/2023 11:09 AM Date of : 1965 Age: 57 Procedure: Colonoscopy Indications: High risk colon cancer surveillance: Personal history of sessile serrated colon polyp (10 mm or greater in size) Providers: Jannette Serra MD Patient Profile: This is a 57 year old female. Last Colonoscopy: 2018. Complications: No immediate complications. Procedure: Pre-Anesthesia Assessment: - Prior to the procedure, a History and Physical was performed, and patient medications and allergies were reviewed. The patient's tolerance of previous anesthesia was also reviewed. The risks and benefits of the procedure and the sedation options and risks were discussed with the patient. All questions were answered, and informed consent was obtained. Prior Anticoagulants: The patient has taken no anticoagulant or antiplatelet agents. ASA Grade Assessment: Per anesthesia. After reviewing the risks and benefits, the patient was deemed in satisfactory condition to undergo the procedure. After I obtained informed consent, the scope was passed under direct vision. Throughout the procedure, the patient's blood pressure, pulse, and oxygen saturations were monitored continuously. The Colonoscope was introduced through the anus and advanced to the cecum, identified by the appendiceal orifice, ileocecal valve and palpation. The colonoscopy was performed without difficulty. The patient tolerated the procedure well. The quality of the bowel preparation was good. Scope In: 11:19:30 AM Scope Withdrawal Time 0 hours 25 minutes 58 seconds Scope Out: 11:54:42 AM Total Procedure Duration Time 0 hours 35 minutes 12 seconds Findings: Three sessile polyps were found in the descending colon and transverse colon. The polyps were less than 5 mm in size. These polyps were removed with a cold biopsy forceps. Resection and retrieval were complete. A 5 mm polyp was found in the hepatic flexure. The polyp was sessile. The polyp was removed with a hot snare. Resection and retrieval were complete. A 7 mm polyp was found in the splenic flexure. The polyp was sessile. The polyp was removed with a piecemeal technique using a hot snare. Resection and retrieval were complete. The exam was otherwise without abnormality. Non-bleeding internal hemorrhoids were found. The hemorrhoids were Grade I (internal hemorrhoids that do not prolapse). Impression: - Three less than 5 mm polyps in the descending colon and in the transverse colon, removed with a cold biopsy forceps. Resected and retrieved. - One 5 mm polyp at the hepatic flexure, removed with a hot snare. Resected and retrieved. - One 7 mm polyp at the splenic flexure, removed piecemeal using a hot snare. Resected and retrieved. - The examination was otherwise normal. - Non-bleeding internal hemorrhoids. Recommendation: - Discharge patient to home. - Resume previous diet. - Continue present medications. - Await pathology results. - Repeat colonoscopy in 1 year for surveillance after piecemeal polypectomy. Procedure Code(s): --- Professional --- 91815, PT, Colonoscopy, flexible; with removal of tumor(s), polyp(s), or other lesion(s) by snare technique 10526, 59, Colonoscopy, flexible; with biopsy, single or multiple Diagnosis Code(s): --- Professional --- Z86.010, Personal history of colonic polyps D12.4, Benign neoplasm of descending colon D12.3, Benign neoplasm of transverse colon (hepatic flexure or splenic flexure) CPT copyright 2021 [employer] [place] [employer]. All rights reserved. The codes documented in this report are preliminary and upon administrative medical director review may be revised to meet current compliance requirements. MD Jannette Bonner MD 06/12/2023 12:05:07 PM This report has been signed electronically. Number of Addenda: 0 Note Initiated On: 06/12/2023 11:09 AM
--- NOTE | 2023-06-12 12:05 | OP.CCLET_ITS ---
06/12/2023 Jennifer Frost, Do Re : Colonoscopy procedure for Christy Murray Dear Santosh This procedure was performed on Monday, June 12, 2023. My impressions and recommendations are as follows: Impressions : - Three less than 5 mm polyps in the descending colon and in the transverse colon, removed with a cold biopsy forceps. Resected and retrieved. - One 5 mm polyp at the hepatic flexure, removed with a hot snare. Resected and retrieved. - One 7 mm polyp at the splenic flexure, removed piecemeal using a hot snare. Resected and retrieved. - The examination was otherwise normal. - Non-bleeding internal hemorrhoids. Recommendations : - Discharge patient to home. - Resume previous diet. - Continue present medications. - Await pathology results. - Repeat colonoscopy in 1 year for surveillance after piecemeal polypectomy. My findings are described in the full procedure note, which is enclosed. If I can be of further assistance, please feel free to contact me at Doctor phone number(s): , Work: . Sincerely, MD Jannette Bonner MD 06/12/2023 12:05:07 PM This report has been signed electronically.
[2023-06-12 12:10] VITALS: BP 148/79; PULSE 62; RESP 16; O2SAT 98
[2023-06-12 12:13] VITALS: BP 111/65; BP 148/79; PULSE 62; RESP 16; TEMP 36.3; O2SAT 99
[2023-06-12 12:26] VITALS: BP 148/79
== END 2023-06-12 12:45 | disposition home or self-care (01) ==
LOC: EN 09:25 → AC 09:27
PROVIDERS: PCP Family Medicine; Referring Provider Family Medicine; Visit Provider Surgery
PROC: 0DJD8ZZ Inspection of Lower Intestinal Tract, Via Natural or Artificial Opening Endoscopic (ICD-10-PCS; CPT 45378; principal; 2023-06-12 10:40)
DX: Z12.11 Encounter for screening for malignant neoplasm of colon (principal); D12.3 Benign neoplasm of transverse colon; D12.4 Benign neoplasm of descending colon; K64.0 First degree hemorrhoids; I10 Essential (primary) hypertension; Z79.899 Other long term (current) drug therapy; Z86.010 Personal history of colon polyps
CPT/HCPCS: 45385; 45380; 88305; J7120

== ENCOUNTER 2023-08-06 00:05 | Emergency (ER) | payer OTHER, SELFPAY ==
[2023-08-06 00:05] VITALS: BP 238/99; PULSE 68; RESP 18; TEMP 36.6; O2SAT 99; BMI 30.7
--- NOTE | 2023-08-06 00:29 | EX.ED.DYSGE1 ---
HPI History of Present Illness Chief Complaint: Hypertension Informant: patient Narrative Narrative: Patient basically not feeling well for the latter half of the day, and having some mild tingling in her palms and cheeks bilaterally symmetrically, which is happen before when her blood pressure is elevated. In her doctor's office today, she stopped by for a nurse blood pressure check and it was 180 by the automatic cuff and 150 on manual, they are going to prescribe her a new blood pressure medication but it has not been prescribed yet. She has been compliant with her other blood pressure medication. Tonight because of the symptoms she checked her blood pressure and it was 180 systolic and later it was over 200 systolic. She denies headache, chest pain, dyspnea, lightheadedness, syncope, or lateralizing neurologic symptoms. [employer] Medical History Asthma Cardiology follow-up encounter Heart murmur Hypertension Hypothyroid Thyroid disease Wears glasses Home Medications lisinopril 20 mg tablet 20 mg PO DAILY 30 days #30 tabs 08/01/22 [Rx Last Taken 06/12/23 08:00] metoprolol succinate 25 mg tablet,extended release 24 hr 25 mg PO DAILY 30 days #30 tabs 08/01/22 [Rx Last Taken 06/11/23 23:00] clonidine HCl 0.2 mg tablet 0.2 mg PO BID PRN SBP > 175 #20 tabs 08/06/23 [Rx Last Taken Unknown] Allergy/AdvReac Type Severity Reaction Status Date / Time Sulfa (Sulfonamide Allergy Itching Verified 08/06/23 00:07 Antibiotics) erythromycin base AdvReac Vomiting Verified 08/06/23 00:07 Surgical History Hx of colonoscopy with polypectomy Social History Smoking Status: Never smoker ROS ROS ED Constitutional Constitutional ED: Denies chills or fever(s) Eyes Eyes: Denies change in vision or diplopia ENT ENT ED: Denies rhinorrhea or sore throat Cardiovascular Cardiovascular: Denies chest pain or palpitations Respiratory/Chest Respiratory/Chest: Denies cough or dyspnea Gastrointestinal Gastrointestinal: Denies abdominal pain, diarrhea, nausea or vomiting Genitourinary Genitourinary ED: Denies dysuria or hematuria Musculoskeletal Musculoskeletal: Denies back pain or neck pain Integumentary Denies abscess or rash Neurologic Neurologic: Reports paresthesias; Denies headache(s) or weakness Psychiatric Psychiatric: Denies anxiety or suicidal thoughts EXAM Physical Exam Const Vital Signs: 08/06/23 00:05 08/06/23 00:45 08/06/23 00:51 Temperature 97.9 F Temperature Source Temporal Pulse Rate 68 65 Respiratory Rate 18 24 H Respiratory Effort Normal Non-Labored Respiratory Pattern Normal Blood Pressure 238/99 H 222/92 H Blood Pressure Mean 145 135 Pulse Ox 99 96 Oxygen Delivery Method Room Air Room Air 08/06/23 01:05 Temperature Temperature Source Pulse Rate 69 Respiratory Rate 15 Respiratory Effort Respiratory Pattern Blood Pressure 173/74 H Blood Pressure Mean 107 Pulse Ox 98 Oxygen Delivery Method Room Air Positive well nourished and well developed General Appearance ED: well developed and NAD HEENT Reports moist mucous membranes normocephalic and atraumatic Eyes PERRL and EOMs intact bilaterally Neck full ROM and supple Resp normal respiratory effort and clear to auscultation bilaterally Cardio regular rate, regular rhythm and no murmurs Rate: Negative for tachycardic GI non-distended Back/Spine General Back: other FROM Extremity normal to inspection General Extremety ED: Negative for edema, pulses abnormal or tenderness General Extremity: Negative for edema or pulses abnormal Neuro oriented x3, CN's II-XII intact bilaterally and no sensory deficits noted Sensorium / Orientation: awake and alert Motor Exam: strength 5/5 throughout Psych mental status grossly normal Skin no rashes or lesions noted and no wounds MDM MDM MDM Narrative Medical decision making narrative: Patient was given clonidine 0.2 mg on reevaluation her blood pressure gradually came down to 173/74. She is currently asymptomatic. Looking back at her recent labs, she had some outpatient labs less than 1 week ago showing normal renal function and I do not think we need to obtain other emergent testing. I advise close outpatient follow-up especially calling the office to see if they wanted to change her medications in order to get that prescription to go through. I would wait before changing any of her current medications. I will give her a prescription for some clonidine to use in an urgent situation at home and she is okay with that. Discharge Plan Triage Chief Complaint: Hypertension ED Provider: Ted Galvez Dx/Rx/DC Orders Clinical Impression: Accelerated hypertension Instructions: Hypertension Dc Prescriptions: New clonidine HCl 0.2 mg tablet 0.2 mg PO BID PRN (Reason: SBP > 175) Qty: 20 0RF No Action lisinopril 20 mg tablet 20 mg PO DAILY 30 Days Qty: 30 1RF metoprolol succinate 25 mg tablet extended release 24 hr 25 mg PO DAILY 30 Days Qty: 30 1RF Primary Care Provider: Jennifer Frost Referrals: Jennifer Frost, [Primary Care Provider] - As soon as possible Disposition Disposition: Home, Self Care
--- OUTSIDE RECORDS SUMMARY | 2023-08-06 00:42 | XMS RPT_ITS | CCD ---
Author Name Unknown Address [address] [place] [address] Organization [facility] Care Team Providers Care Gambling Floor Supervisor Name Role Phone Linwood Wilson DO Primary Care Provider Allergies Allergy Classification Reported Allergen(s) Allergy Type Date of Onset Reaction(s) Facility (2 sources) Erythromycin; Translations: [ERYTHROMYCIN] Drug Allergy 1 Vomiting [facility] Work Phone: (2 sources) Sulfonamides (Antibiotic); Translations: [SULFA (SULFONAMIDE ANTIBIOTICS)] Drug Intolerance 1 Itching [facility] Work Phone: Medications Current Medications Medication [...] Drug Class(es) Dates Sig (Normalized) Sig (Original) [id number] 200 actuat albuterol 0.09 mg/actuat metered dose [...] 97.3 [degF] Giselle Go APRN.CNP Work Phone: [facility] 07-25-2022 12:35-0500 Body weight 89.99 kg Giselle Go APRN.CNP Work Phone: [facility] 07-25-2022 12:35-0500 Diastolic blood pressure 106 mm[Hg] Giselle Go APRN.CNP Work Phone: [facility] 07-25-2022 12:35-0500 Heart rate 70 /min Giselle Go APRN.CNP Work Phone: [facility] 07-25-2022 12:35-0500 Respiratory rate 18 /min Giselle Go APRN.CNP Work Phone: [facility] 07-25-2022 12:35-0500 SaO2% (BldA) [Mass fraction] 98 % Giselle Go APRN.CNP Work Phone: [facility] 07-25-2022 12:35-0500 Systolic blood pressure 218 mm[Hg] Giselle Go APRN.CNP Work Phone: [facility] Encounters Encounter Date Encounter Type Care Provider Facility Start: 07-25-2022 End: 07-25-2022 ambulatory LINWOOD WILSON Facility:[facility] Start: 07-25-2022 End: 07-25-2022 Patient encounter procedure Giselle Go APRN.CNP Work Phone: [facility] Procedures Date Procedure Procedure Detail Performing Clinician Start: 07-25-2022 STREP A MOLECULAR (POC) Giselle Go APRN.CNP Work Phone: Start: 12-06-2018 Colonoscopy Giselle Go APRN.CNP Work Phone: Start: 11-18-2017 Mammography Giselle Go APRN.CNP Work Phone: Plan of Treatment Date Care Activity Detail Author Start: 12-06-2028 Colonoscopy COLONOSCOPY [facility] Start: 12-06-2028 COLORECTAL CANCER SCREENING COLORECTAL CANCER SCREENING [facility] Start: 06-01-2022 DEPRESSION ASSESSMENT DEPRESSION ASS ESSMENT [facility] Start: 01-30-2022 Influenza vaccination INFLUENZA (#1) [facility] Start: 10-14-2020 Urine microalbumin profile DTA P,TDAP,TD (2 - Td or Tdap) [facility] Start: 05-23-2020 PAP TESTING PAP TESTING [facility] Start: 03-03-2019 LIPID SCREEN LIPID SCREEN [facility] Start: 11-18-2018 Mammography MAMMOGRAM [facility] Start: 09-11-2018 DIABETES SCREEN DIABETES SCREEN [facility] Start: 2015 SHINGRIX VACCINE (1 of 2) SHINGRIX V ACCINE (1 of 2) [facility] Start: 2010 COLOGUARD (FIT-DNA) COLOGUARD (FIT-D NA) [facility] Start: [address] COLONOGRAPHY [facility] Start: 2010 FECAL OCCULT BLOOD FECAL OCCULT BLOO D [facility] Start: 2010 SIGMOIDOSCOPY SIGMOIDOSCOPY [facility] Start: 1995 HPV TESTING HPV TESTING [facility] Start: 1983 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 RACHEL DISEASE VISIT ANNUAL PCP TEAM CHRONIC DISEASE VISIT [facility] Start: 1983 BP CONTROLLED (<130/80) BP CONTROLLE D (<130/80) [facility] Start: 1983 HEPATITIS C SCREENING HEPATITIS C SC REENING [facility] Start: 1983 HIV SCREENING HIV SCREENING [facility] Start: 01-12-1966 COVID-19 VACCINE (#1) COVID-19 VACCI NE (#1) [facility] Start: 1965 HEPATITIS B (1 of 3 - 3-dose series) HEPATITIS B (1 of 3 - 3-dose series) [facility] Immunizations Immunization Date Immunization Notes Care Provider Nic beard 10-14-2010 tetanus toxoid, redu julian diphtheria toxoid, and acellular pertussis vaccine, adsorbed Giselle Go APRN.ANIMAL ANATOMIST Work Phone: [facility] Work Phone: Payers Date Payer Category Payer Private Health Insurance [employer] A ETNA MANAGED CHOICE POS [id number] 2018-Present [phone] [address] [place] [address] POS 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 Author Type: Nurse Practitioner Type: Progress Notes Filed: 07/25/2022 1:04 PM Note Text: CC: Patient presents with: Head Congestion: Sinus drainage x3 days Head congestion longer than a week last few days much worse. HPI: Jmaari Murray is a 57 year old female [...] of Onset Diabetes Mother Heart Mother 48 [place], hx of 4 vessel CABG COPD Mother [...] Patient agreeable to treatment plan. Giselle Go APRN.[facility] History of Present illness Narrative 07-25-2022 Giselle Go APRN.[facility] - 07/25/2022 12:47 PM EST Note Date [...] of Onset Diabetes Mother Heart Mother 48 [place], hx of 4 vessel CABG COPD Mother [...] Giselle Go APRN.MINESH documented in this encounter [facility] Evaluation note Note Date & Type Note Facility documented in this encounter [facility] Summary Purpose Family History No Family [...] or prosecute any alcohol or drug abuse patient.[facility] Reason for Visit (unrecogniz ed section [...] BE BASED ON THE PRIMARY CLINICAL RECORDS. [employer] provides no warranty or guarantee of the accuracy or completeness of information in this document.
[2023-08-06] MEDS: cloNIDine HCl 0.2 MG Tablet 0.200000000000000011 MG PO (00:50)
[2023-08-06 00:51] VITALS: BP 222/92; PULSE 65; RESP 24; O2SAT 96
[2023-08-06 01:05] VITALS: BP 173/74; PULSE 69; RESP 15; O2SAT 98
[2023-08-06 01:37] VITALS: BP 175/50; PULSE 69; RESP 16; TEMP 36.2; O2SAT 99
== END 2023-08-06 01:38 | disposition home or self-care (01) ==
PROVIDERS: Emergency Provider Emergency Medicine; PCP Family Medicine; Visit Provider Emergency Medicine
DX: I10 Essential (primary) hypertension (principal); Z79.899 Other long term (current) drug therapy
CPT/HCPCS: 99282

== ENCOUNTER → 2023-08-07 | Outpatient (CLI) | payer OTHER, SELFPAY ==
--- OUTSIDE RECORDS SUMMARY | 2023-08-07 17:39 | XMS RPT_ITS | CCD ---
Author Name Unknown Address [address] [place] [address] Organization [facility] Care Team Providers Care Ornamental Iron Worker Apprentice Name Role Phone Linwood Wilson DO Primary Care Provider Allergies Allergy Classification Reported Allergen(s) Allergy Type Date of Onset Reaction(s) Facility (2 sources) Erythromycin; Translations: [ERYTHROMYCIN] Drug Allergy 1 Vomiting [facility] Work Phone: (2 sources) Sulfonamides (Antibiotic); Translations: [SULFA (SULFONAMIDE ANTIBIOTICS)] Drug Intolerance 1 Itching [facility] Work Phone: Medications Current Medications Medication Drug [...] Drug Class(es) Dates Sig (Normalized) Sig (Original) [id number] 200 actuat albuterol 0.09 mg/actuat metered dose [...] 97.3 [degF] Giselle Go APRN.CNP Work Phone: [facility] 07-25-2022 12:35-0500 Body weight 89.99 kg Giselle Go APRN.CNP Work Phone: [facility] 07-25-2022 12:35-0500 Diastolic blood pressure 106 mm[Hg] Giselle oG APRN.CNP Work Phone: [facility] 07-25-2022 12:35-0500 Heart rate 70 /min Giselle Go APRN.CNP Work Phone: [facility] 07-25-2022 12:35-0500 Respiratory rate 18 /min Giselle Go APRN.CNP Work Phone: [facility] 07-25-2022 12:35-0500 SaO2% (BldA) [Mass fraction] 98 % Giselle Go APRN.CNP Work Phone: [facility] 07-25-2022 12:35-0500 Systolic blood pressure 218 mm[Hg] Giselle Go APRN.CNP Work Phone: [facility] Encounters Encounter Date Encounter Type Care Provider Facility Start: 07-25-2022 End: 07-25-2022 ambulatory LINWOOD WILSON Facility:[facility] Start: 07-25-2022 End: 07-25-2022 Patient encounter procedure Giselle Go APRN.CNP Work Phone: [facility] Procedures Date Procedure Procedure Detail Performing Clinician Start: 07-25-2022 STREP A MOLECULAR (POC) Giselle Go APRN.CNP Work Phone: Start: 12-06-2018 Colonoscopy Gieslle Go APRN.CNP Work Phone: Start: 11-18-2017 Mammography Giselle Go APRN.CNP Work Phone: Plan of Treatment Date Care Activity Detail Author Start: 12-06-2028 Colonoscopy COLONOSCOPY [facility] Start: 12-06-2028 COLORECTAL CANCER SCREENING COLORECTAL CANCER SCREENING [facility] Start: 06-01-2022 DEPRESSION ASSESSMENT DEPRESSION ASS ESSMENT [facility] Start: 01-30-2022 Influenza vaccination INFLUENZA (#1) [facility] Start: 10-14-2020 Urine microalbumin profile DTA P,TDAP,TD (2 - Td or Tdap) [facility] Start: 05-23-2020 PAP TESTING PAP TESTING [facility] Start: 03-03-2019 LIPID SCREEN LIPID SCREEN [facility] Start: 11-18-2018 Mammography MAMMOGRAM [facility] Start: 09-11-2018 DIABETES SCREEN DIABETES SCREEN [facility] Start: 2015 SHINGRIX VACCINE (1 of 2) SHINGRIX V ACCINE (1 of 2) [facility] Start: 2010 COLOGUARD (FIT-DNA) COLOGUARD (FIT-D NA) [facility] Start: [address] COLONOGRAPHY [facility] Start: 2010 FECAL OCCULT BLOOD FECAL OCCULT BLOO D [facility] Start: 2010 SIGMOIDOSCOPY SIGMOIDOSCOPY [facility] Start: 1995 HPV TESTING HPV TESTING [facility] Start: 1983 ANNUAL 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 RACHEL DISEASE VISIT ANNUAL PCP TEAM CHRONIC DISEASE VISIT [facility] Start: 1983 BP CONTROLLED (<130/80) BP CONTROLLE D (<130/80) [facility] Start: 1983 HEPATITIS C SCREENING HEPATITIS C SC REENING [facility] Start: 1983 HIV SCREENING HIV SCREENING [facility] Start: 01-12-1966 COVID-19 VACCINE (#1) COVID-19 VACCI NE (#1) [facility] Start: 1965 HEPATITIS B (1 of 3 - 3-dose series) HEPATITIS B (1 of 3 - 3-dose series) [facility] Immunizations Immunization Date Immunization Notes Care Provider Nic beard 10-14-2010 tetanus toxoid, redu julian diphtheria toxoid, and acellular pertussis vaccine, adsorbed Giselle Go APRN.ENDOSCOPY NURSE Work Phone: [facility] Work Phone: Payers Date Payer Category Payer Private Health Insurance [employer] A ETNA MANAGED CHOICE POS [id number] 2018-Present [phone] [address] [place] [address] POS 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 Author [...] of Onset Diabetes Mother Heart Mother 48 [place], hx of 4 vessel CABG COPD Mother [...] Patient agreeable to treatment plan. Giselle Go APRN.[facility] History of Present illness Narrative 07-25-2022 Giselle Go APRN.[facility] - 07/25/2022 12:47 PM EST Note [...] of Onset Diabetes Mother Heart Mother 48 [place], hx of 4 vessel CABG COPD Mother [...] Giselle Go APRN.MINESH documented in this encounter [facility] Evaluation note Note Date & Type Note Facility documented in this encounter [facility] Summary Purpose Family History No Family History [...] or prosecute any alcohol or drug abuse patient.[facility] Reason for Visit (unrecogniz ed section and [...] BE BASED ON THE PRIMARY CLINICAL RECORDS. [employer] provides no warranty or guarantee of the accuracy or completeness of information in this document.
[2023-08-07 17:40] LABS: Absolute Lymphocyte Count 1.79 X10^3/uL (0.83-4.51); Absolute Neutrophil Count 3.6 X10^3/uL (2.0-7.7); Basophil# 0.04 X10^3/uL; Basophil% 0.7 % (0-1); Eosinophil# 0.08 X10^3/uL; Eosinophils% 1.4 % (0-5); Hematocrit 38.8 % (37-47); Hemoglobin 13.3 g/dL (12.0-15.0); Lymphocyte # 1.79 X10^3/ul (0.83-4.51); Mean Corp Hgb Conc 34.3 g/dL (32-36); Mean Corpuscular Hgb 30.4 pg (27.0-32.0); Mean Corpuscular Volume 88.8 fL (81-99); Mean Platelet Vol. 9.9 fl (6.2-12.0); Monocyte# 0.25 X10^3/uL; Monocyte% 4.3 % (0-10); NRBC Flagged by Analyzer 0 % (0-5); Neutrophil # 3.61 X10^3/uL (2.7-7.7); Neutrophil % 62.4 % (47-70); Platelet Count 263 K/mm3 (150-450); RBC Distribution Width CV 11.9 % (11.6-14.6); RBC Distribution Width SD 38.3 fl (35.1-43.9); Red Blood Count 4.37 M/mm3 (4.2-5.4); White Blood Count 5.8 K/mm3 (4.4-11.0)
[2023-08-07 18:16] LABS: Vitamin D,25 Hydroxy 21.9 ng/mL
[2023-08-07 18:27] LABS: AST(SGOT) 21 U/L (15-37); Alanine Aminotransfer ALT/SGPT 34 U/L (13-56); Albumin, Serum 3.6 g/dL (3.2-5.0); Alkaline Phosphatase 91 U/L (45-117); Anion Gap 5 (5-15); BUN 16 mg/dL (7-18); BUN/Creat Ratio 22.3 RATIO (10-20); Calcium,Total 9.5 mg/dL (8.5-10.1); Chloride 108 mmol/L (98-107); Cholesterol 202 mg/dL (200); Creatinine, Serum 0.72 mg/dL (0.55-1.02); EST Glomerular Filtration Rate 89 mL/min (>60); Est Glom Filt Rate - Afr Amer 108 mL/min (>60); Globulin 3.7 g/dL (2.2-4.2); Glucose 94 mg/dL (74-106); High Density Lipoprotein 67 mg/dL; Potassium 3.9 mmol/L (3.5-5.1); Protein, Total 7.3 g/dL (6.4-8.2); Sodium Level 141 mmol/L (136-145); Thyroid Stim Hormone (TSH) 1.72 uIU/mL (0.358-3.74); Triglycerides 102 mg/dL; Very Low Density Lipoprotein 20 mg/dL (5-40)
== END | disposition home or self-care (01) ==
LOC: MFPLAB 16:13
PROVIDERS: Family Medicine; PCP Family Medicine; Visit Provider Family Medicine
DX: I10 Essential (primary) hypertension (principal); E55.9 Vitamin D deficiency, unspecified
CPT/HCPCS: 36415; 80053; 80061; 82306; 84443; 85025

== ENCOUNTER → 2024-07-05 | Outpatient (CLI) | payer BC, SELFPAY ==
--- NOTE | 2024-07-05 07:43 | BI_ITS ---
PROCEDURE: SCRN MAMM (CAD)W/AMADA BILAT REASON FOR EXAM: F, Age 58 y/o, grandmother with breast cancer. TECHNIQUE: Bilateral screening digital breast tomosynthesis with 2D and 3D images. Computer aided detection. COMPARISON: Prior exam(s) dating back to January 09, 2023.. FINDINGS: The breasts are heterogeneously dense which may obscure small masses. No suspicious masses, areas of developing architectural distortion, or suspicious calcifications. No change since prior study. BI/SCRN MAMM (CAD)W/AMADA BILAT IMPRESSION: BI-RADS 1: NEGATIVE. RECOMMEND ANNUAL MAMMOGRAPHIC SCREENING. Follow-up code: Routine Follow-up The patient will be notified of the results by letter. Reading Location: [place] [id number]
== END | disposition home or self-care (01) ==
PROVIDERS: PCP Family Medicine; Referring Provider Family Medicine; Visit Provider Family Medicine
DX: Z12.31 Encounter for screening mammogram for malignant neoplasm of breast (principal)
CPT/HCPCS: 77063; 77067

== ENCOUNTER 2024-08-08 08:41 | Day surgery (SDC) | payer BC, SELFPAY ==
--- NOTE | 2024-08-08 09:00 | PRE.ANES_ITS ---
ASA Classification* ASA Classification ASA Classification: 2 Assessment & Plan Anesthesia* Anesthesia Assessment Anesthesia Assessment: Discussed sedation and/or anesthesia options, risks, benefits, and alternatives with patient/parents/legal guardian/POA. Questions invited. The patient/parents/legal guardian/POA seems to understand and agrees to proceed with anesthesia plan. Reviewed the physical assessment, medical history, allergy history and patient home medications list prior to surgery/procedure/anesthetic and documented any changes. Performed airway and anesthesia risk assessments. Anesthesia Type Anesthesia Type: MAC Anesthesia Focused Assessment* Airway Assessment Mouth opens: >3 cm Mallampati Score: II Focused Labs Anesthesia Preop lab: CBC WBC 5.8 K/mm3 (4.4-11.0) 08/07/23 16:14 08/07/23 RBC 4.37 M/mm3 (4.2-5.4) 08/07/23 16:14 08/07/23 Hgb 13.3 g/dL (12.0-15.0) 08/07/23 16:14 08/07/23 Hct 38.8 % (37-47) 08/07/23 16:14 08/07/23 Plt Count 263 K/mm3 (150-450) 08/07/23 16:14 08/07/23 CHEMISTRY Potassium 3.9 mmol/L (3.5-5.1) 08/07/23 16:14 08/07/23 Sodium 141 mmol/L (136-145) 08/07/23 16:14 08/07/23 BUN 16 mg/dL (7-18) 08/07/23 16:14 08/07/23 Creatinine 0.72 mg/dL (0.55-1.02) 08/07/23 16:14 08/07/23 Glucose 94 mg/dL (74-106) 08/07/23 16:14 08/07/23 TSH 1.72 uIU/mL (0.358-3.74) 08/07/23 16:14 COAG Pre-Assessment Diagnosis/Proposed Procedure Planned Operative Procedure(s): COLONOSCOPY-OA Anesthesia History Anesthesia History - senior web analyst: Anesthesia History - senior web analyst Hx Hospitalization No 08/03/24 13:44 Any Problems With Anesthesia No 08/03/24 13:44 Cholinesterase deficiency No 08/03/24 13:44 You/Your Family Experience No 08/03/24 13:44 fever (hyperthermia) with Relationship Recent Exposure to Contagious No 06/12/23 10:10 Disease Does patient have nerve No 08/03/24 13:44 stimulator Patient instructed to have device shut off --Does patient have Pacemaker or ICD? When Was Last Pacemaker Check QUESTION #4 FULL TEXT: You/Your Family Experience fever (hyperthermia) with Anesthesia Last Oral Intake Last Oral intake: Last Oral Intake NPO since Meds taken in AM with sips of water? Meds patient instructed to take am of surgery PONV PONV - senior web analyst: PONV - senior web analyst Female Yes 08/03/24 13:44 HX of Motion Sickness No 08/03/24 13:44 HX of N/V After Surgery No 08/03/24 13:44 Non-Smoker Yes 08/03/24 13:44 Duration of Surgery greater No 08/03/24 13:44 than 60 minutes Number of Risk Factors 2 08/03/24 13:44 PONV Score Moderate Risk 08/03/24 13:44 Height & Weight Height & Weight: Anesthesia: Height & Weight Height 5 ft 6 in 07/06/24 10:05 Respiratory Assessment Respiratory Assessment - senior web analyst: Respiratory Tract Infection Hx - senior web analyst Hx Respiratory Tract Infection No 08/03/24 13:44 STOP Sleep Apnea STOP Sleep Apnea - senior web analyst: STOP Sleep Apnea - senior web analyst Hx Hypertension Yes: CONTROLLED ON MED 08/03/24 13:44 Hx Sleep Apnea No 08/03/24 13:44 CPAP BIPAP Do you snore loudly (louder No 08/03/24 13:44 than talking or can be heard Do you often feel tired/ No 08/03/24 13:44 fatigued/ sleepy during daytime? Has anyone observed you stop No 08/03/24 13:44 breathing during sleep? STOP Results Negative 08/03/24 13:44 QUESTION #5 FULL TEXT : Do you snore loudly (louder than talking or can be heard through closed doors)? Tobacco Use History Tobacco Use History - senior web analyst: Tobacco Use History - senior web analyst Tobacco Use Smoking Status Never smoker 08/03/24 13:44 Hx Tobacco Use No 08/03/24 13:44 Years Smoking Packs Smoked per Day Smoking Cessation Date was within the last 15 years Hx Smoking Cessation Date Hx Smoking Cessation Counseling Hematologic Medial History Hematologic Hx - senior web analyst: Hematologic Medical Hx - cotton factor Hx of Blood Transfusion No 08/03/24 13:44 Hx of Transfusion in last 3 No 08/03/24 13:44 Months Date of Last Transfusion (if within last 3 months) Ever experience any problems No 08/03/24 13:44 with transfusion(s)? Specify any problems Hx of Preganancy in last 3 No 08/03/24 13:44 Months Nurse Filling Out Transfusion VCHRISTIN 08/03/24 13:44 & Questions: Date: 08/03/24 08/03/24 13:44 Time: 13:45 08/03/24 13:44 Patient unable to answer at this time (ie. confused, unrespo /Reproduction History /Reproductive History - senior web analyst: /Reproductive Hx- senior web analyst Hx Now Gestational Age (in weeks): EDC: Hx Hx Para Hx Section SAB PFSH Medical History Asthma Wears glasses Cardiology follow-up encounter Heart murmur Thyroid disease Hypertension Hypothyroid Home Medications ?Medication ?Instructions ?Recorded ?Last Taken ?Type amlodipine 5 mg tablet 5 mg PO QDAY 07/06/24 Unknow n History lisinopril 20 1 tab PO BID 07/06/24 Unknow n History mg-hydrochlorothiazide 12.5 mg tablet Allergy/AdvReac Type Severity Reaction Status Date / Time Sulfa (Sulfonamide Allergy Itching Verified 08/03/24 13:41 Antibiotics) erythromycin base AdvReac Vomiting Verified 08/03/24 13:41 Family History Mother Colon polyps Surgical History Hx of colonoscopy Hx of colonoscopy with polypectomy Social History household members: spouse current occupational status: employed Smoking Status: Never smoker substance use type: does not use Review of Systems (Anesthesia) ROS Narrative System reviewed and no additional complaints, except as documented.
[2024-08-08 09:02] VITALS: BP 96/49; PULSE 67; RESP 12; TEMP 36.3; O2SAT 100; BMI 30.2
--- NOTE | 2024-08-08 09:09 | H&P.OPEN ---
HPI - General General Date of Service: 08/08/24 HPI Narrative JAMARI MCKENZIE, is a 59 F who presents for colonoscopy due to piecemeal polypectomy at last colonoscopy at the splenic flexure. Patient last colonoscopy was 06/12/2023 patient did have hyperplastic and tubular adenomas found at that time. Prior to that patient did have colonoscopy in 2019 had a 3.5 cm serrated polyp removed at [facility] at the hepatic flexure. Patient's mom did have colon polyp unsure of size, denies any family history of colon cancer. Patient has bowel movements daily denies any blood. Patient denies any chronic abdominal pain/nausea/vomiting/reflux. [facility] Medical History Asthma Wears glasses Cardiology follow-up encounter Heart murmur Thyroid disease Hypertension Hypothyroid Home Medications ?Medication ?Instructions ?Recorded ?Last Taken ?Type amlodipine 5 mg tablet 5 mg PO QDAY 07/06/24 08/08/24 History lisinopril 20 1 tab PO BID 07/06/24 08/07/24 History mg-hydrochlorothiazide 12.5 mg tablet Allergy/AdvReac Type Severity Reaction Status Date / Time Sulfa (Sulfonamide Allergy Itching Verified 08/08/24 09:01 Antibiotics) erythromycin base AdvReac Vomiting Verified 08/08/24 09:01 Family History Mother Colon polyps Surgical History Hx of colonoscopy Hx of colonoscopy with polypectomy Social History household members: spouse current occupational status: employed Smoking Status: Never smoker substance use type: does not use Past Medical/Surgical History Planned Operation Planned Operative Procedure(s): COLONOSCOPY-OA Previous Hospitalizations/Surgeries HX Hospitalizations: No Any Problems With Anesthesia: No You/Your Family Experience Fever (Hyperthermia) With Anes: No Cholinesterase deficiency: No Cardiovascular Hx Hypertension: Yes (CONTROLLED ON MED) Respiratory Hx Sleep Apnea: No Hx Respiratory Tract Infection/Cold (presently): No Do You Snore Loudly (louder than talking or can be heard): No Do You Often Feel Tired/ Fatigued/ Sleepy Dring Daytime?: No Has Anyone Observed You Stop Breathing During Sleep?: No Result (for STOP score): Negative Smoking Status: Never smoker Neurological Does patient have nerve stimulator: No Miscellaneous Recent Exposure to Contagious Disease: No Allergies Sulfa (Sulfonamide Antibiotics) Allergy (Verified 08/08/24 09:01) Itching erythromycin base Adverse Reaction (Verified 08/08/24 09:01) Vomiting Discharge Is Pt Admitted From a Long Term, or a Penitentiary: No After D/C, Where Do you Plan to Go: Return Home Vital Signs Vital Signs Vital Signs: 08/08/24 09:02 08/08/24 09:02 Temperature 97.4 F L Temperature Source Temporal Pulse Rate 67 Respiratory Rate 12 Respiratory Pattern Normal Blood Pressure 96/49 L Blood Pressure Mean 64 Blood Pressure Source Monitor Blood Pressure Position Semi-Fowlers Blood Pressure Location Left Arm Pulse Ox 100 Oxygen Delivery Method Room Air Weight Weight: 187 lb 6.287 oz Body Mass Index (BMI) 30.2 Physical Exam Const alert, oriented x3 and no apparent distress HEENT normocephalic and head/scalp atraumatic Resp normal respiratory effort Cardio regular rate GI soft to palpation and non-tender; Negative for non-distended Palpation: Negative for guarding Extremity no clubbing, cyanosis or edema Skin no rashes or lesions noted Neuro CN's II-XII intact bilaterally Psych mental status grossly normal Assessment & Plan Assessment/Plan (1) Hx of colonic polyps: (2) Serrated polyp of colon: Surgery Risks - Colonoscopy I discussed with the patient the risks of the procedure: Yes Risks Include but are not Limited To: Risks include but are not limited to: Bleeding, perforation requiring further surgery, inability to complete colonoscopy requiring barium enema.
--- NOTE | 2024-08-08 10:00 | COLBX_PTH ---
PATIENT: JAMARI MCKENZIE LOC: EN U#:[id number] AGE/SX: 59/F ROOM: RE08/08/[address]: Dr. Jannette Serra MD : 1965 BED: DIS: 08/08/2024 SPEC #: [id number] RECD: 08/08/24 12:27 STATUS: DANYELL EFRA #: [id number] SHARON: 08/08/24 10:[address]: Jannette Serra DEPT: SURGICAL PATHOLOGY RECD BY: Marley Leija ENTERED: 08/08/24 12:48 SP TYPE: COLON BX OTHR DR: Gregor Mattson MD Tissues: A - Ascending colon B - Ascending colon Procedures: Surgery Specimen Level IV HEADER OPERATION: Colonoscopy with polypectomy PRE-OP DIAGNOSIS: Personal history of polyps TISSUE SUBMITTED: A- Ascending colon polyp, B- Ascending colon polyp biopsy MICROSCOPIC DIAGNOSIS A: ASCENDING COLON POLYP, BIOPSY: * Sessile serrated lesion. B: ASCENDING COLON POLYP BIOPSY: * Tubular adenoma. * MICROSCOPIC DESCRIPTION Slides are reviewed. GROSS DESCRIPTION A. Received in fixative is one container labeled with the patient's name and designated Ascending colon polyp. The specimen consists of multiple irregular fragments of light macias soft tissue that in aggregate measure 1.2 x 0.7 x 0.2 cm. The specimen is totally submitted in one cassette. B. Received in fixative is one container labeled with the patient's name and designated Ascending colon polyp biopsy. The specimen consists of one irregular fragment of light macias soft tissue that measures 0.3 x 0.2 x 0.1 cm. The specimen is totally submitted in one cassette. MS/ 08/08/2024 CPT:99838k2
--- NOTE | 2024-08-08 10:44 | PCM.POST.ANE ---
Anesthesia: Postop Eval I Current Vital Signs Temperature: 98.4 F Pulse Rate: 71 Blood Pressure: 108/64 Respiratory Rate: 16 Pulse Ox: 99 Oxygen Delivery Method: Room Air Assessment Airway patent: Yes Spontaneous unlabored respirations: Yes Mental status: Awake and Calm nausea: No Vomiting: No Anesthesia Complication: No Fluid Hydration Crystalloid volume administer (ml): 10 Total IV fluid infused: 10 Progress Note Anesthesia document: Postop Eval 1 completed: Yes
[2024-08-08 11:05] VITALS: BP 108/64; BP 96/49; PULSE 70; RESP 16; TEMP 36.9; O2SAT 99
[2024-08-08 11:08] VITALS: BP 108/64; PULSE 71; RESP 16; TEMP 36.9; O2SAT 99
--- NOTE | 2024-08-08 11:09 | OP.COLON_ITS ---
Patient Name: Christy Murray Procedure Date: 08/08/2024 10:19 AM Date of : 1965 Age: 59 Procedure: Colonoscopy Indications: Surveillance: History of piecemeal removal adenoma on last colonoscopy (< 3 yrs) Providers: Jannette Serra MD Referring MD: Jannette Serra MD Medicines: Monitored Anesthesia Care Patient Profile: This is a 59 year old female. Last Colonoscopy: 01/2024. Complications: No immediate complications. Procedure: Pre-Anesthesia Assessment: - Prior to the procedure, a History and Physical was performed, and patient medications and allergies were reviewed. The patient's tolerance of previous anesthesia was also reviewed. The risks and benefits of the procedure and the sedation options and risks were discussed with the patient. All questions were answered, and informed consent was obtained. Prior Anticoagulants: The patient has taken no anticoagulant or antiplatelet agents. ASA Grade Assessment: Per anesthesia. After reviewing the risks and benefits, the patient was deemed in satisfactory condition to undergo the procedure. After I obtained informed consent, the scope was passed under direct vision. Throughout the procedure, the patient's blood pressure, pulse, and oxygen saturations were monitored continuously. The pediatric colonoscope was introduced through the anus and advanced to the cecum, identified by the appendiceal orifice, ileocecal valve and palpation. The colonoscopy was technically difficult and complex due to a redundant colon. Successful completion of the procedure was aided by applying abdominal pressure. The patient tolerated the procedure well. The quality of the bowel preparation was good. Scope In: 10:24:55 AM Scope Withdrawal Time 0 hours 15 minutes 15 seconds Scope Out: 11:00:01 AM Total Procedure Duration Time 0 hours 35 minutes 6 seconds Findings: Hemorrhoids were found on perianal exam. Non-bleeding internal hemorrhoids were found. The hemorrhoids were Grade I (internal hemorrhoids that do not prolapse). A less than 5 mm polyp was found in the ascending colon. The polyp was sessile. The polyp was removed with a cold biopsy forceps. Resection and retrieval were complete. A 5 mm polyp was found in the ascending colon. The polyp was sessile. The polyp was removed with a hot snare. The polyp was removed with a piecemeal technique using a hot snare. Resection and retrieval were complete. The exam was otherwise without abnormality. Impression: - Hemorrhoids found on perianal exam. - Non-bleeding internal hemorrhoids. - One less than 5 mm polyp in the ascending colon, removed with a cold biopsy forceps. Resected and retrieved. - One 5 mm polyp in the ascending colon, removed with a hot snare and removed piecemeal using a hot snare. Resected and retrieved. - The examination was otherwise normal. Recommendation: - Discharge patient to home. - Resume previous diet. - Continue present medications. - Await pathology results. - Repeat colonoscopy 1-3 years for surveillance based on pathology results. Procedure Code(s): --- Professional --- 88598, PT, Colonoscopy, flexible; with removal of tumor(s), polyp(s), or other lesion(s) by snare technique 24135, 59, Colonoscopy, flexible; with biopsy, single or multiple Diagnosis Code(s): --- Professional --- Z86.010, Personal history of colonic polyps K64.0, First degree hemorrhoids D12.2, Benign neoplasm of ascending colon CPT copyright 2021 [employer]. All rights reserved. The codes documented in this report are preliminary and upon gm video review may be revised to meet current compliance requirements. MD Jannette Bonner MD 08/08/2024 11:08:33 AM This report has been signed electronically. Number of Addenda: 0 Note Initiated On: 08/08/2024 10:19 AM
--- NOTE | 2024-08-08 11:09 | OP.CCLET_ITS ---
08/08/2024 Gregor Mattson Md Re : Colonoscopy procedure for Christy Armstrongke This procedure was performed on Thursday, August 08, 2024. My impressions and recommendations are as follows: Impressions : - Hemorrhoids found on perianal exam. - Non-bleeding internal hemorrhoids. - One less than 5 mm polyp in the ascending colon, removed with a cold biopsy forceps. Resected and retrieved. - One 5 mm polyp in the ascending colon, removed with a hot snare and removed piecemeal using a hot snare. Resected and retrieved. - The examination was otherwise normal. Recommendations : - Discharge patient to home. - Resume previous diet. - Continue present medications. - Await pathology results. - Repeat colonoscopy 1-3 years for surveillance based on pathology results. My findings are described in the full procedure note, which is enclosed. If I can be of further assistance, please feel free to contact me at Doctor phone number(s): , Work: . Sincerely, MD Jannette Bonner MD 08/08/2024 11:08:33 AM This report has been signed electronically.
[2024-08-08 11:10] VITALS: BP 100/57; BP 96/49; PULSE 68; RESP 16; O2SAT 99
[2024-08-08 11:15] VITALS: BP 96/49; BP 96/61; PULSE 64; RESP 16; TEMP 36.5; O2SAT 99
[2024-08-08 12:01] VITALS: BP 96/49
--- NOTE | 2024-08-08 12:08 | POSTOPAN2_ITS ---
Anesthesia Postop Eval I Sum Postop Eval Completion status Anesthesia document: Postop Eval 1 completed: Yes Anesthesia Postop Eval I Summary Anesthesia Postop Eval I Summary: Anesthesia Postop Eval I: Assessment Summary Airway patent Yes 08/08/24 11:08 POWER STATION [email or web address] Spontaneous unlabored Yes 08/08/24 11:08 POWER STATION [email or web address].[email or web address] respirations Mental status Awake,Calm 08/08/24 11:08 POWER STATION [email or web address] nausea No 08/08/24 11:08 POWER STATION OPERATOR.[email or web address] Vomiting No 08/08/24 11:08 POWER STATION [email or web address].[email or web address] Anesthesia Postop Eval I: Fluid Summary Crystalloid volume administer 10 08/08/24 11:08 POWER STATION [email or web address].[email or web address] (ml) Colloids volume administered ( ml) Blood Product volume administered (ml) Total IV fluid infused 10 08/08/24 11:08 POWER STATION [email or web address].[email or web address] Anesthesia Postop Eval I: Summary Notes Anesthesia Complication No 08/08/24 11:08 POWER STATION [email or web address].[email or web address] Anesthesia Complication Comment: Post-operative progress note Anesthesia: Postop Eval II Evaluation Mental status: Awake Pain Level: 0 nausea: No Vomiting: No
--- NOTE | 2024-08-08 12:08 | PCM.POSTANE2 ---
Anesthesia Postop Eval I Sum Postop Eval Completion status Anesthesia document: Postop Eval 1 completed: Yes Anesthesia Postop Eval I Summary Anesthesia Postop Eval I Summary: Anesthesia Postop Eval I: Assessment Summary Airway patent Yes 08/08/24 11:08 ARTIFICIAL FLOWERS [email or web address] Spontaneous unlabored Yes 08/08/24 11:08 ARTIFICIAL FLOWERS STARCHER.[email or web address] respirations Mental status Awake,Calm 08/08/24 11:08 ARTIFICIAL FLOWERS STARCHER.[email or web address] nausea No 08/08/24 11:08 ARTIFICIAL FLOWERS STARCHER.[email or web address] Vomiting No 08/08/24 11:08 ARTIFICIAL FLOWERS STARCHER.[email or web address] Anesthesia Postop Eval I: Fluid Summary Crystalloid volume administer 10 08/08/24 11:08 ARTIFICIAL FLOWERS [email or web address].[email or web address] (ml) Colloids volume administered ( ml) Blood Product volume administered (ml) Total IV fluid infused 10 08/08/24 11:08 ARTIFICIAL FLOWERS [email or web address].[email or web address] Anesthesia Postop Eval I: Summary Notes Anesthesia Complication No 08/08/24 11:08 ARTIFICIAL FLOWERS [email or web address].[email or web address] Anesthesia Complication Comment: Post-operative progress note Anesthesia: Postop Eval II Evaluation Mental status: Awake Pain Level: 0 nausea: No Vomiting: No
== END 2024-08-08 12:18 | disposition home or self-care (01) ==
LOC: EN 08:43 → AC 08:44
PROVIDERS: PCP Family Medicine; Referring Provider Family Medicine; Visit Provider Surgery
PROC: 0DJD8ZZ Inspection of Lower Intestinal Tract, Via Natural or Artificial Opening Endoscopic (ICD-10-PCS; CPT 45378; principal; 2024-08-08 09:55)
DX: D12.2 Benign neoplasm of ascending colon (principal); K64.0 First degree hemorrhoids; I10 Essential (primary) hypertension; E03.9 Hypothyroidism, unspecified; Z79.899 Other long term (current) drug therapy; Z86.0100 Personal history of colon polyps, unspecified
CPT/HCPCS: 45385; 45380; 88305; A4216; J2405

== ENCOUNTER → 2025-04-14 | Outpatient (CLI) | payer BC, SELFPAY ==
[2025-04-14 12:31] LABS: Creatinine, Urine (random) 160.00 mg/dL (28.00-217.00); Microalbumin,Random Urine < 12.0 mg/L (<20 mg/L)
[2025-04-14 13:10] LABS: AST(SGOT) 38 U/L (<=31); Alanine Aminotransfer ALT/SGPT 46 U/L (<=34); Albumin, Serum 4.4 g/dL (3.5-5.0); Alkaline Phosphatase 86 U/L (35-104); Anion Gap 11 (5-15); BUN 13 mg/dL (4-19); BUN/Creat Ratio 14.5 RATIO (10-20); Calcium,Total 9.8 mg/dL (7.6-11.0); Carbon Dioxide 28.0 mmol/L (21.0-32.0); Chloride 103 mmol/L (98-108); Cholesterol 224 mg/dL (<=200); Globulin 3.2 g/dL (2.2-4.2); Glucose 109 mg/dL (70-99); Low Density Lipoprotein Calc. 145 mg/dL; Potassium 3.3 mmol/L (3.3-5.1); Triglycerides 94 mg/dL; Very Low Density Lipoprotein 19 mg/dL (5-40); Vitamin D,25 Hydroxy 26.5 ng/mL (30-100); cholesterol:hdl ratio screen 3.61
== END | disposition home or self-care (01) ==
LOC: MFPLAB 09:57
PROVIDERS: PCP Family Medicine; Visit Provider Family Medicine
DX: E87.6 Hypokalemia (principal); I10 Essential (primary) hypertension; Z13.1 Encounter for screening for diabetes mellitus
CPT/HCPCS: 80053; 80061; 82043; 82306; 82570; 83036